=== PATIENT | female | born 1955 | race Caucasian/White ===

== ENCOUNTER 2017-01-21 17:07 | Inpatient (IN) | payer OTHER ==
[~2017-01-21] VITALS: Ht 162.6 cm; Wt 144.4 kg
[2017-01-21 17:51] LABS: CARBON DIOXIDE (BICARBONATE) 31.3 MEQ/L (20-31)
[2017-01-21 17:53] LABS: HEMATOCRIT 32.7 % (36.0-46.0); MCH 26.5 PG (29.0-34.0); MCHC 31.5 G/DL (30.0-36.0); MCV 84.1 FL (83-99); MEAN PLAT.VOLUME 11.5 uM^3 (9.5-12.4); PLATELET COUNT 186 K/uL (156-360); RBC DIS.WIDTH-CV 14.2 % (11.8-14.6); RBC DIS.WIDTH-SD 43.3 % (39-53); RED BLOOD COUNT 3.89 M/uL (3.80-5.20); WHITE BLOOD COUNT 8.1 K/uL (4.1-10.2)
[2017-01-21 18:01] LABS: CHLORIDE 103 mEq/L (99-109); POTASSIUM 3.3 mEq/L (3.7-5.4); SODIUM 141 mEq/L (136-147)
[2017-01-21 18:03] LABS: GLUCOSE 220 mg/dL (70-99)
[2017-01-21 18:04] LABS: ANION GAP 14 MEQ/L (2-14)
[2017-01-21 18:07] LABS: UREA NITROGEN (BUN) 30 mg/dL (9-23)
[2017-01-21 18:12] LABS: TROP-I INTERPRETATION NEGATIVE; TROPONIN-I 0.02 ng/mL (0.0-0.30)
[2017-01-21 18:14] LABS: GFR ESTIMATE (CALCULATED) 30 mL/min/
[2017-01-21] MEDS ORDERED: APRESOLINE100 MG PO (19:00)
[2017-01-21] MEDS ORDERED: LYRICA75 MG PO (19:01)
[2017-01-21] MEDS ORDERED: DUONEB 2.5-0.5 M3 ML AEROSOL (19:02)
[2017-01-21] MEDS ORDERED: PROAIR HFA8.5 GM IH (19:02)
[2017-01-21] MEDS ORDERED: LOW DOSE ASPIRI81 M1 PO (19:03)
[2017-01-21] MEDS ORDERED: NORVASC10 MG PO (19:03)
[2017-01-21] MEDS ORDERED: BUDESONIDE0.5 MG/2 M IH (19:04)
[2017-01-21] MEDS ORDERED: SYMBICORT60 INHALAT IH (19:07)
[2017-01-21] MEDS ORDERED: XANAX0.5 MG PO (19:08)
[2017-01-21] MEDS ORDERED: LASIX40 MG PO (19:08)
[2017-01-21] MEDS ORDERED: ERGOCALCIF50000 UNIT PO (19:09)
[2017-01-21] MEDS ORDERED: CELEXA10 MG PO (19:09)
[2017-01-21] MEDS ORDERED: CELEXA20 MG PO (19:10)
[2017-01-21] MEDS ORDERED: PRAVACHOL10 MG PO (19:11)
[2017-01-21] MEDS ORDERED: [UNRECOGNIZED DRUG - OTHER] TP (19:12)
[2017-01-21] MEDS ORDERED: HUMULIN R500 UNIT/1 SC ×2 (19:21→19:23)
[2017-01-21] MEDS ORDERED: LEVO-T150 MCG PO (19:23)
[2017-01-21] MEDS ORDERED: MAGNESIUM OXID500 MG PO (19:24)
[2017-01-21] MEDS ORDERED: BYSTOLIC10 MG PO (19:25)
[2017-01-21] MEDS ORDERED: RANITIDINE HCL150 MG PO (19:25)
[2017-01-21] MEDS ORDERED: [UNRECOGNIZED DRUG - OTHER] TP (19:26)
[2017-01-21] MEDS ORDERED: ANTIBIOTIC TP (19:26)
[2017-01-21] MEDS ORDERED: KENLAOG,ARISTOC60 ML TP (19:27)
[2017-01-21] MEDS ORDERED: LIDOCAINE700 MG TD (19:29)
[2017-01-21] MEDS ORDERED: DAILY VALUE1 EACH PO (19:30)
[2017-01-21] MEDS ORDERED: PERCOCET 5/31 TABLET PO (19:31)
[2017-01-21] MEDS ORDERED: POTASSIUM CHLO10 ME4 PO (19:31)
[2017-01-21] MEDS ORDERED: FLONASE16 G1 BOTH NARES (19:32)
[2017-01-21 21:25] LABS: BICARBONATE 29.6 mEq/L (22-26); COMMENTS - BLOOD GASES A+C+; DEVICE NC; O2 FLOW 4 L/MIN; PCO2 38 mm Hg (35-45); PO2 53 mm Hg (80-100); SITE LR; TOTAL RESP RATE 21 resp/min
[2017-01-22] VITALS (7 sets, daily range): BP systolic 107–153; BP diastolic 51–65
[2017-01-22 01:12] LABS: POINT-OF-CARE METER ID UU14174216
[2017-01-22 02:34] LABS: TROP-I INTERPRETATION NEGATIVE; TROPONIN-I 0.02 ng/mL (0.0-0.30)
[2017-01-22 06:05] LABS: INFLUENZA A VIRAL ANTIGEN NEGATIVE; INFLUENZA B VIRAL ANTIGEN NEGATIVE
[2017-01-22 07:10] LABS: EOSINOPHIL (%) 0 % (0-5); HEMATOCRIT 32.7 % (36.0-46.0); IMMATURE GRANULOCYTE (%) 1.2 % (0.0-0.7); IMMATURE GRANULOCYTE COUNT 0.1 K/uL; INSTRUMENT ABS NEUTROPHIL CT 6.1 K/uL; LYMPHOCYTE COUNT 0.5 K/uL (1.0-2.8); MCH 26.4 PG (29.0-34.0); MCHC 30.9 G/DL (30.0-36.0); MCV 85.6 FL (83-99); MEAN PLAT.VOLUME 11.7 uM^3 (9.5-12.4); MONOCYTE (%) 1.5 % (3-12); MONOCYTE COUNT 0.1 K/uL (0-0.8); NEUTROPHIL (%) 89.6 % (45-76); NEUTROPHIL COUNT 6.1 K/uL (1.8-6.4); PLATELET COUNT 170 K/uL (156-360); RBC DIS.WIDTH-CV 14.2 % (11.8-14.6); RED BLOOD COUNT 3.82 M/uL (3.80-5.20); WHITE BLOOD COUNT 6.8 K/uL (4.1-10.2)
[2017-01-22 07:35] LABS: TROP-I INTERPRETATION NEGATIVE; TROPONIN-I 0.02 ng/mL (0.0-0.30)
[2017-01-22 07:42] LABS: ADD MIUA? YES; BILIRUBIN NEGATIVE; BLOOD NEGATIVE; COLOR YELLOW ((YELLOW)); GLUCOSE (STRIP) 150; KETONES NEGATIVE; LEUKOCYTES NEGATIVE; NITRITE NEGATIVE; PROTEIN (STRIP) >=500; SPECIFIC GRAVITY 1.012 (1.000-1.030); UROBILINOGEN 0.2 MG/DL (0.2-1.0)
[2017-01-22 08:03] LABS: BACTERIA RARE /HPF; EPITHELIAL CELLS RARE /HPF; GRANULAR CASTS 0-5 /LPF; MUCUS TRACE /LPF; WHITE BLOOD CELLS 0-5 /HPF (0-5)
[2017-01-22 08:20] LABS: ANION GAP 12 MEQ/L (2-14); CHLORIDE 101 MEQ/L (99-109); GFR ESTIMATE (CALCULATED) 28 mL/min/; GLUCOSE 351 mg/dL (70-99); SAMPLE HEMOLYSIS CHECK 0; SAMPLE ICTERIC CHECK 0; SAMPLE LIPEMIA CHECK 0; SODIUM 139 MEQ/L (136-147); UREA NITROGEN (BUN) 30 mg/dL (9-23)
[2017-01-22 08:51] LABS: INTERNAL CONTROL VALID? YES
[2017-01-22 12:30] LABS: POINT-OF-CARE METER ID UU13113781
[2017-01-22 16:18] LABS: POINT-OF-CARE METER ID UU13113781
[2017-01-23 04:00] VITALS: BP 119/56
[2017-01-23 07:57] VITALS: BP 134/59
[2017-01-23 08:04] LABS: POINT-OF-CARE METER ID UU13113781
[2017-01-23 11:18] LABS: POINT-OF-CARE METER ID UU14174216
[2017-01-23 11:29] LABS: ANION GAP 10 MEQ/L (2-14); CHLORIDE 99 MEQ/L (99-109); GFR ESTIMATE (CALCULATED) 25 mL/min/; GLUCOSE 273 mg/dL (70-99); POTASSIUM 3.8 MEQ/L (3.7-5.4); SAMPLE HEMOLYSIS CHECK 0; SAMPLE ICTERIC CHECK 0; SAMPLE LIPEMIA CHECK 0; SODIUM 138 MEQ/L (136-147); UREA NITROGEN (BUN) 41 mg/dL (9-23)
[2017-01-23 12:48] VITALS: BP 135/73
[2017-01-23 16:09] LABS: POINT-OF-CARE METER ID UU14174216
[2017-01-23 16:18] VITALS: BP 129/72
[2017-01-23 20:02] LABS: METH RESISTANT S AUREUS PCR NEGATIVE (NEGATIVE)
[2017-01-23 20:03] LABS: PROBE CHECK PASS; SPECIMEN PROCESSING CONTROL PASS
[2017-01-23 20:09] VITALS: BP 138/63
[2017-01-23 20:52] LABS: POINT-OF-CARE METER ID UU14174216
[2017-01-23 23:34] VITALS: BP 130/70
[2017-01-24 03:24] VITALS: BP 124/56
[2017-01-24 06:43] LABS: POINT-OF-CARE METER ID UU14162508
[2017-01-24 07:52] VITALS: BP 136/68
[2017-01-24 08:36] LABS: HEMATOCRIT 33.7 % (36.0-46.0); MCH 26.2 PG (29.0-34.0); MCHC 31.2 G/DL (30.0-36.0); MEAN PLAT.VOLUME 11.7 uM^3 (9.5-12.4); PLATELET COUNT 208 K/uL (156-360); RBC DIS.WIDTH-CV 14.1 % (11.8-14.6); RBC DIS.WIDTH-SD 42.9 % (39-53); RED BLOOD COUNT 4.01 M/uL (3.80-5.20)
[2017-01-24 08:37] LABS: WHITE BLOOD COUNT 11.7 K/uL (4.1-10.2)
[2017-01-24 08:42] LABS: ANION GAP 8 MEQ/L (2-14); CHLORIDE 103 MEQ/L (99-109); GFR ESTIMATE (CALCULATED) 23 mL/min/; GLUCOSE 143 mg/dL (70-99); POTASSIUM 3.8 MEQ/L (3.7-5.4); SAMPLE HEMOLYSIS CHECK 0; SAMPLE ICTERIC CHECK 0; SAMPLE LIPEMIA CHECK 0; SODIUM 139 MEQ/L (136-147); UREA NITROGEN (BUN) 50 mg/dL (9-23)
[2017-01-24 11:03] VITALS: BP 141/60
[2017-01-24 11:21] LABS: POINT-OF-CARE METER ID UU14162508
[2017-01-24 15:32] VITALS: BP 124/62
[2017-01-24 15:46] LABS: POINT-OF-CARE METER ID UU14162508
[2017-01-24 19:51] VITALS: BP 112/56
[2017-01-24 22:16] LABS: POINT-OF-CARE METER ID UU14162508
[2017-01-24 23:10] VITALS: BP 133/63
[2017-01-25 03:47] VITALS: BP 142/65
[2017-01-25 04:25] LABS: EOSINOPHIL (%) 0 % (0-5); HEMATOCRIT 32.5 % (36.0-46.0); IMMATURE GRANULOCYTE (%) 2.2 % (0.0-0.7); IMMATURE GRANULOCYTE COUNT 0.2 K/uL; INSTRUMENT ABS NEUTROPHIL CT 7.6 K/uL; LYMPHOCYTE COUNT 0.8 K/uL (1.0-2.8); MCH 26.4 PG (29.0-34.0); MCHC 31.4 G/DL (30.0-36.0); MEAN PLAT.VOLUME 11.7 uM^3 (9.5-12.4); MONOCYTE (%) 3.7 % (3-12); MONOCYTE COUNT 0.3 K/uL (0-0.8); NEUTROPHIL (%) 84.8 % (45-76); NEUTROPHIL COUNT 7.6 K/uL (1.8-6.4); PLATELET COUNT 179 K/uL (156-360); RBC DIS.WIDTH-CV 14.1 % (11.8-14.6); RBC DIS.WIDTH-SD 42.9 % (39-53); RED BLOOD COUNT 3.87 M/uL (3.80-5.20); WHITE BLOOD COUNT 8.9 K/uL (4.1-10.2)
[2017-01-25 04:50] LABS: CHLORIDE 105 mEq/L (99-109); POTASSIUM 3.9 mEq/L (3.7-5.4); SODIUM 141 mEq/L (136-147)
[2017-01-25 04:51] LABS: GLUCOSE 149 mg/dL (70-99)
[2017-01-25 04:53] LABS: ANION GAP 11 MEQ/L (2-14)
[2017-01-25 04:55] LABS: GFR ESTIMATE (CALCULATED) 24 mL/min/
[2017-01-25 04:56] LABS: UREA NITROGEN (BUN) 55 mg/dL (9-23)
[2017-01-25 05:52] LABS: VANCOMYCIN, TROUGH 11.1 MCG/ML (10-20)
[2017-01-25 06:37] LABS: POINT-OF-CARE METER ID UU14162508
[2017-01-25 07:06] VITALS: BP 130/60
[2017-01-25 11:05] VITALS: BP 121/58
[2017-01-25 12:30] LABS: POINT-OF-CARE METER ID UU14162508
[2017-01-25 15:27] VITALS: BP 155/69
[2017-01-25 15:37] LABS: POINT-OF-CARE METER ID UU14162508
[2017-01-25 19:47] VITALS: BP 132/66
[2017-01-25 20:48] LABS: POINT-OF-CARE METER ID UU14162508
[2017-01-25 23:45] VITALS: BP 145/71
[2017-01-26 03:44] VITALS: BP 141/68
[2017-01-26 06:34] LABS: POINT-OF-CARE METER ID UU14162508
[2017-01-26 07:36] LABS: EOSINOPHIL (%) 0.1 % (0-5); HEMATOCRIT 30.8 % (36.0-46.0); IMMATURE GRANULOCYTE (%) 1.8 % (0.0-0.7); IMMATURE GRANULOCYTE COUNT 0.2 K/uL; INSTRUMENT ABS NEUTROPHIL CT 6.2 K/uL; LYMPHOCYTE COUNT 1.8 K/uL (1.0-2.8); MCH 26.6 PG (29.0-34.0); MCHC 31.5 G/DL (30.0-36.0); MCV 84.6 FL (83-99); MEAN PLAT.VOLUME 12.2 uM^3 (9.5-12.4); MONOCYTE (%) 7.4 % (3-12); MONOCYTE COUNT 0.7 K/uL (0-0.8); NEUTROPHIL (%) 70.2 % (45-76); NEUTROPHIL COUNT 6.2 K/uL (1.8-6.4); PLATELET COUNT 152 K/uL (156-360); RBC DIS.WIDTH-CV 13.9 % (11.8-14.6); RBC DIS.WIDTH-SD 43.3 % (39-53); RED BLOOD COUNT 3.64 M/uL (3.80-5.20); WHITE BLOOD COUNT 8.8 K/uL (4.1-10.2)
[2017-01-26 07:55] VITALS: BP 125/58
[2017-01-26 08:05] LABS: ANION GAP 8 MEQ/L (2-14); CHLORIDE 106 MEQ/L (99-109); GFR ESTIMATE (CALCULATED) 28 mL/min/; POTASSIUM 3.5 MEQ/L (3.7-5.4); SAMPLE HEMOLYSIS CHECK 0; SAMPLE ICTERIC CHECK 0; SAMPLE LIPEMIA CHECK 0; SODIUM 143 MEQ/L (136-147); UREA NITROGEN (BUN) 51 mg/dL (9-23)
[2017-01-26 08:06] LABS: GLUCOSE 102 mg/dL (70-99)
[2017-01-26 12:23] VITALS: BP 127/58
[2017-01-26 15:21] VITALS: BP 135/63
[2017-01-26 16:26] LABS: POINT-OF-CARE USER ID STWLMB34
[2017-01-27 00:07] VITALS: BP 148/67
[2017-01-27 06:57] LABS: EOSINOPHIL (%) 0.2 % (0-5); HEMATOCRIT 31.9 % (36.0-46.0); IMMATURE GRANULOCYTE (%) 2.7 % (0.0-0.7); IMMATURE GRANULOCYTE COUNT 0.3 K/uL; INSTRUMENT ABS NEUTROPHIL CT 6.8 K/uL; LYMPHOCYTE COUNT 1.4 K/uL (1.0-2.8); MCH 26.5 PG (29.0-34.0); MCHC 31.3 G/DL (30.0-36.0); MCV 84.4 FL (83-99); MEAN PLAT.VOLUME 11.1 uM^3 (9.5-12.4); MONOCYTE (%) 6.8 % (3-12); MONOCYTE COUNT 0.6 K/uL (0-0.8); NEUTROPHIL (%) 74.5 % (45-76); NEUTROPHIL COUNT 6.8 K/uL (1.8-6.4); PLATELET COUNT 145 K/uL (156-360); RBC DIS.WIDTH-CV 13.7 % (11.8-14.6); RBC DIS.WIDTH-SD 42.6 % (39-53); RED BLOOD COUNT 3.78 M/uL (3.80-5.20); WHITE BLOOD COUNT 9.1 K/uL (4.1-10.2)
[2017-01-27 07:21] LABS: ANION GAP 9 MEQ/L (2-14); CHLORIDE 106 MEQ/L (99-109); GFR ESTIMATE (CALCULATED) 28 mL/min/; GLUCOSE 130 mg/dL (70-99); POTASSIUM 3.9 MEQ/L (3.7-5.4); SAMPLE HEMOLYSIS CHECK 0; SAMPLE ICTERIC CHECK 0; SAMPLE LIPEMIA CHECK 0; SODIUM 143 MEQ/L (136-147); UREA NITROGEN (BUN) 47 mg/dL (9-23)
[2017-01-27 08:00] VITALS: BP 133/60
[2017-01-27 11:58] LABS: POINT-OF-CARE METER ID UU14162508
[2017-01-27] MEDS ORDERED: CIPROFLOXACIN500 M1 PO (12:04)
[2017-01-27] MEDS ORDERED: DOXYCYCLINE HY100 M3 PO (12:05)
[2017-01-27] MEDS ORDERED: SPIRIVA RESPIMAT4 GM IH (12:05)
[2017-01-27] MEDS ORDERED: PRAVACHOL10 MG PO (12:06)
[2017-01-27] MEDS ORDERED: LASIX40 MG PO (12:07)
[2017-01-27] MEDS ORDERED: PREDNISONE20 MG PO (12:07)
[2017-01-27] MEDS ORDERED: PERCOCET 5/31 TABLET PO (12:12)
[2017-01-27] MEDS ORDERED: XANAX0.5 MG PO (12:12)
[2017-01-27] MEDS ORDERED: LYRICA75 MG PO (15:42)
== END 2017-01-27 16:10 | DRG 189 ==
LOC: EME 17:07 → EDOF 22:41 → 4EAST 22:41 → 2EASTP 01-23 23:26
PROVIDERS: Emergency Medicine; Hospitalist; Internal Medicine
PROC: 5A09357 Assistance with Respiratory Ventilation, Less than 24 Consecutive Hours, Continuous Positive Airway Pressure (ICD-10-PCS; principal; 2017-01-22)
DX: J96.01 Acute respiratory failure with hypoxia (principal); J18.9 Pneumonia, unspecified organism; I50.9 Heart failure, unspecified; J44.9 Chronic obstructive pulmonary disease, unspecified; E11.8 Type 2 diabetes mellitus with unspecified complications; K86.1 Other chronic pancreatitis; E03.9 Hypothyroidism, unspecified; R51 Headache; J44.1 Chronic obstructive pulmonary disease with (acute) exacerbation; Z77.22 Contact with and (suspected) exposure to environmental tobacco smoke (acute) (chronic); N18.3 Chronic kidney disease, stage 3 (moderate); E66.2 Morbid (severe) obesity with alveolar hypoventilation; F39 Unspecified mood [affective] disorder; R26.2 Difficulty in walking, not elsewhere classified; I13.0 Hypertensive heart and chronic kidney disease with heart failure and stage 1 through stage 4 chronic kidney disease, or unspecified chronic kidney disease; Z85.3 Personal history of malignant neoplasm of breast; Z90.11 Acquired absence of right breast and nipple; Z99.81 Dependence on supplemental oxygen; Z68.29 Body mass index [BMI] 29.0-29.9, adult; K86.81 Exocrine pancreatic insufficiency
CPT/HCPCS: 36600; 71010; 71020; 71250; 72131; 73552; 73560; 73590; 74176; 78582; 80048; 80202; 81003; 82803; 82948; 83605; 83880; 84484; 85025; 85027; 85379; 87040; 87070; 87205; 87449; 87502; 87641; 93005; 93306; 93970; 94640; 94640 76; 94660; 94760; 94799; 97530 GO; 99202; 99281; 99284; A9540; A9567; J0456; J1650; J1815; J1940; J1956; J2060; J2543; J2920; J2930; J3370; J7050; J7512

== ENCOUNTER 2017-03-04 11:46 | Inpatient (IN) | payer OTHER ==
[~2017-03-04] VITALS: Ht 162.6 cm; Wt 135.0 kg
[~2017-03-04 11:46] MED LIST: ANTIBIOTIC TP; APRESOLINE100 MG PO; BUDESONIDE0.5 MG/2 M IH; BYSTOLIC10 MG PO; CELEXA10 MG PO; CELEXA20 MG PO; CIPROFLOXACIN500 M1 PO; DAILY VALUE1 EACH PO; DOXYCYCLINE HY100 M3 PO; DUONEB 2.5-0.5 M3 ML AEROSOL; ERGOCALCIF50000 UNIT PO; FLONASE16 G1 BOTH NARES; HUMULIN R500 UNIT/1 SC; KENLAOG,ARISTOC60 ML TP; LASIX40 MG PO; LEVO-T150 MCG PO; LIDOCAINE700 MG TD; LOW DOSE ASPIRI81 M1 PO; LYRICA75 MG PO; MAGNESIUM OXID500 MG PO; NORVASC10 MG PO; PERCOCET 5/31 TABLET PO; POTASSIUM CHLO10 ME4 PO; PRAVACHOL10 MG PO; PREDNISONE20 MG PO; PROAIR HFA8.5 GM IH; RANITIDINE HCL150 MG PO; SPIRIVA RESPIMAT4 GM IH; SYMBICORT60 INHALAT IH; XANAX0.5 MG PO; [UNRECOGNIZED DRUG - OTHER] TP; [UNRECOGNIZED DRUG - OTHER] TP
[2017-03-04 13:07] LABS: EOSINOPHIL (%) 4.3 % (0-5); EOSINOPHIL COUNT 0.3 K/uL (0-0.3); HEMATOCRIT 27.9 % (36.0-46.0); IMMATURE GRANULOCYTE (%) 2.2 % (0.0-0.7); IMMATURE GRANULOCYTE COUNT 0.2 K/uL; INSTRUMENT ABS NEUTROPHIL CT 5.4 K/uL; LYMPHOCYTE COUNT 1.1 K/uL (1.0-2.8); MCH 25.4 PG (29.0-34.0); MCHC 31.2 G/DL (30.0-36.0); MCV 81.3 FL (83-99); MEAN PLAT.VOLUME 10.6 uM^3 (9.5-12.4); MONOCYTE (%) 8.3 % (3-12); MONOCYTE COUNT 0.6 K/uL (0-0.8); NEUTROPHIL (%) 70.1 % (45-76); NEUTROPHIL COUNT 5.4 K/uL (1.8-6.4); PLATELET COUNT 284 K/uL (156-360); RBC DIS.WIDTH-CV 14.8 % (11.8-14.6); RBC DIS.WIDTH-SD 43.3 % (39-53); RED BLOOD COUNT 3.43 M/uL (3.80-5.20); WHITE BLOOD COUNT 7.7 K/uL (4.1-10.2)
[2017-03-04 13:18] LABS: INTER. NORMALIZED RATIO 1.1; PTT 29.6 (25-32)
[2017-03-04 13:25] LABS: CHLORIDE 107 mEq/L (99-109); POTASSIUM 3.9 mEq/L (3.7-5.4); SODIUM 140 mEq/L (136-147)
[2017-03-04 13:26] LABS: GLUCOSE 240 mg/dL (70-99)
[2017-03-04 13:28] LABS: ANION GAP 11 MEQ/L (2-14)
[2017-03-04 13:30] LABS: GFR ESTIMATE (CALCULATED) 27 mL/min/
[2017-03-04 13:31] LABS: UREA NITROGEN (BUN) 29 mg/dL (9-23)
[2017-03-04 13:34] LABS: TROP-I INTERPRETATION NEGATIVE; TROPONIN-I 0.01 ng/mL (0.0-0.30)
[2017-03-04] MEDS ORDERED: BUDESONIDE0.5 MG/2 M IH (16:04)
[2017-03-04] MEDS ORDERED: FUROSEMIDE40 MG PO (16:06)
[2017-03-04] MEDS ORDERED: PERCOCET 5/31 TABLET PO (16:08)
[2017-03-04] MEDS ORDERED: PRAVASTATIN SOD20 MG PO (16:09)
[2017-03-04] MEDS ORDERED: SPIRIVA RESPIMAT4 GM IH (16:10)
[2017-03-04] MEDS ORDERED: HUMULIN R500 UNIT/1 SC (16:10)
[2017-03-04] MEDS ORDERED: TOUJEO SOL300 UNIT/1 SC (16:11)
[2017-03-04] MEDS ORDERED: ATENOLOL50 MG PO (16:11)
[2017-03-04 17:20] VITALS: BP 141/58
[2017-03-04 18:06] LABS: POINT-OF-CARE METER ID UU13113702
[2017-03-04 20:29] VITALS: BP 143/63
[2017-03-04 23:43] VITALS: BP 141/66
[2017-03-05 03:45] VITALS: BP 138/70
[2017-03-05 03:52] LABS: POINT-OF-CARE METER ID UU14162508
[2017-03-05 06:37] LABS: POINT-OF-CARE METER ID UU14162508
[2017-03-05 07:12] VITALS: BP 129/67
[2017-03-05 07:15] LABS: ANION GAP 11 MEQ/L (2-14); CHLORIDE 102 MEQ/L (99-109); GFR ESTIMATE (CALCULATED) 27 mL/min/; GLUCOSE 351 mg/dL (70-99); POTASSIUM 4.3 MEQ/L (3.7-5.4); SAMPLE HEMOLYSIS CHECK 0; SAMPLE ICTERIC CHECK 0; SAMPLE LIPEMIA CHECK 0; SODIUM 137 MEQ/L (136-147); UREA NITROGEN (BUN) 40 mg/dL (9-23)
[2017-03-05 09:03] LABS: POINT-OF-CARE METER ID UU14162508
[2017-03-05 10:47] VITALS: BP 134/60
[2017-03-05 15:21] VITALS: BP 122/59
[2017-03-05 19:42] VITALS: BP 141/68
[2017-03-06] VITALS (7 sets, daily range): BP systolic 119–139; BP diastolic 58–74
[2017-03-06 07:24] LABS: HEMATOCRIT 27.6 % (36.0-46.0); MCH 26.4 PG (29.0-34.0); MCHC 31.9 G/DL (30.0-36.0); MCV 82.9 FL (83-99); MEAN PLAT.VOLUME 11.1 uM^3 (9.5-12.4); PLATELET COUNT 303 K/uL (156-360); RBC DIS.WIDTH-CV 15.1 % (11.8-14.6); RBC DIS.WIDTH-SD 43.8 % (39-53); RED BLOOD COUNT 3.33 M/uL (3.80-5.20); WHITE BLOOD COUNT 10.2 K/uL (4.1-10.2)
[2017-03-06 07:41] LABS: ANION GAP 10 MEQ/L (2-14); CHLORIDE 99 MEQ/L (99-109); GFR ESTIMATE (CALCULATED) 24 mL/min/; GLUCOSE 354 mg/dL (70-99); POTASSIUM 4.5 MEQ/L (3.7-5.4); SAMPLE HEMOLYSIS CHECK 0; SAMPLE ICTERIC CHECK 0; SAMPLE LIPEMIA CHECK 0; SODIUM 134 MEQ/L (136-147); UREA NITROGEN (BUN) 54 mg/dL (9-23)
[2017-03-06] MEDS ORDERED: HUMULIN R500 UNIT/1 SC (14:20)
[2017-03-06] MEDS ORDERED: HUMULIN R500 UNIT/1 SQ (14:20)
[2017-03-06 17:23] LABS: POINT-OF-CARE METER ID UU14162508; POINT-OF-CARE USER ID STWLMB34
[2017-03-06 22:59] LABS: POINT-OF-CARE METER ID UU14162508
[2017-03-07 05:31] VITALS: BP 137/64
[2017-03-07 07:06] LABS: HEMATOCRIT 26.4 % (36.0-46.0); MCHC 31.8 G/DL (30.0-36.0); MCV 81.7 FL (83-99); MEAN PLAT.VOLUME 10.8 uM^3 (9.5-12.4); PLATELET COUNT 255 K/uL (156-360); RBC DIS.WIDTH-CV 14.8 % (11.8-14.6); RBC DIS.WIDTH-SD 42.7 % (39-53); RED BLOOD COUNT 3.23 M/uL (3.80-5.20); WHITE BLOOD COUNT 10.9 K/uL (4.1-10.2)
[2017-03-07 07:31] VITALS: BP 134/62
[2017-03-07 07:37] LABS: ANION GAP 13 MEQ/L (2-14); CHLORIDE 100 MEQ/L (99-109); GFR ESTIMATE (CALCULATED) 19 mL/min/; GLUCOSE 217 mg/dL (70-99); POTASSIUM 4.2 MEQ/L (3.7-5.4); SAMPLE HEMOLYSIS CHECK 0; SAMPLE ICTERIC CHECK 0; SAMPLE LIPEMIA CHECK 0; SODIUM 132 MEQ/L (136-147); UREA NITROGEN (BUN) 64 mg/dL (9-23)
[2017-03-07 11:28] VITALS: BP 121/59
[2017-03-07 11:40] LABS: POINT-OF-CARE METER ID UU14162508
[2017-03-07 16:06] VITALS: BP 118/57
[2017-03-07 20:04] VITALS: BP 132/78
[2017-03-08 01:05] VITALS: BP 129/60
[2017-03-08 02:14] LABS: POINT-OF-CARE METER ID UU14162508; POINT-OF-CARE USER ID 609231305
[2017-03-08 04:00] VITALS: BP 124/77
[2017-03-08 06:24] VITALS: BP 110/53
[2017-03-08 07:46] LABS: HEMATOCRIT 27.3 % (36.0-46.0); MCH 25.8 PG (29.0-34.0); MCHC 31.5 G/DL (30.0-36.0); PLATELET COUNT 243 K/uL (156-360); RBC DIS.WIDTH-SD 43.1 % (39-53); RED BLOOD COUNT 3.33 M/uL (3.80-5.20); WHITE BLOOD COUNT 10.9 K/uL (4.1-10.2)
[2017-03-08 07:56] LABS: ANION GAP 10 MEQ/L (2-14); CHLORIDE 105 MEQ/L (99-109); GFR ESTIMATE (CALCULATED) 23 mL/min/; GLUCOSE 110 mg/dL (70-99); POTASSIUM 4.1 MEQ/L (3.7-5.4); SAMPLE HEMOLYSIS CHECK 0; SAMPLE ICTERIC CHECK 0; SAMPLE LIPEMIA CHECK 0; SODIUM 138 MEQ/L (136-147); UREA NITROGEN (BUN) 72 mg/dL (9-23)
[2017-03-08 08:00] VITALS: BP 127/63
[2017-03-08] MEDS ORDERED: PREDNISONE10 MG PO (09:23)
[2017-03-09 11:57] LABS: POINT-OF-CARE METER ID UU14162508
[2017-03-09 12:00] LABS: POINT-OF-CARE METER ID UU14162508
[2017-03-09 12:02] LABS: POINT-OF-CARE USER ID 609231305
[2017-03-09 12:06] LABS: POINT-OF-CARE METER ID UU14162508
[2017-03-09 12:07] LABS: POINT-OF-CARE METER ID UU14162508; POINT-OF-CARE USER ID STWLMB34
[2017-03-09 12:09] LABS: POINT-OF-CARE METER ID UU14162508
[2017-03-09 12:09] LABS: POINT-OF-CARE METER ID UU14162508
[2017-03-09 12:10] LABS: POINT-OF-CARE METER ID UU14162508
== END 2017-03-08 12:10 | disposition home health service (06) | DRG 291 ==
LOC: EME 11:46 → EDOF 16:36 → 2EAST 16:36
PROVIDERS: Emergency Medicine; Hospitalist
DX: I50.33 Acute on chronic diastolic (congestive) heart failure (principal); J44.1 Chronic obstructive pulmonary disease with (acute) exacerbation; J96.21 Acute and chronic respiratory failure with hypoxia; E11.65 Type 2 diabetes mellitus with hyperglycemia; K86.1 Other chronic pancreatitis; E11.22 Type 2 diabetes mellitus with diabetic chronic kidney disease; I12.9 Hypertensive chronic kidney disease with stage 1 through stage 4 chronic kidney disease, or unspecified chronic kidney disease; N18.3 Chronic kidney disease, stage 3 (moderate); E11.40 Type 2 diabetes mellitus with diabetic neuropathy, unspecified; Z68.43 Body mass index [BMI] 50.0-59.9, adult; E66.2 Morbid (severe) obesity with alveolar hypoventilation; T38.0X5A Adverse effect of glucocorticoids and synthetic analogues, initial encounter; E78.5 Hyperlipidemia, unspecified; F39 Unspecified mood [affective] disorder; E03.9 Hypothyroidism, unspecified; Z85.3 Personal history of malignant neoplasm of breast; Z90.11 Acquired absence of right breast and nipple; Z90.49 Acquired absence of other specified parts of digestive tract; Z79.4 Long term (current) use of insulin; Z92.3 Personal history of irradiation; Z92.21 Personal history of antineoplastic chemotherapy; Z99.81 Dependence on supplemental oxygen
CPT/HCPCS: 71010; 80048; 82948; 84484; 85025; 85027; 85610; 85730; 93005; 94640; 94640 76; 94660; 94760; 94799; 99202; 99281; 99285; J1644; J1650; J1815; J1940; J2920; J2930; J7512

== ENCOUNTER 2017-03-30 11:12 | Inpatient (IN) | payer OTHER ==
[~2017-03-30] VITALS: Ht 162.6 cm; Wt 147.0 kg
[~2017-03-30 11:12] MED LIST changes: +ATENOLOL50 MG PO; +FUROSEMIDE40 MG PO; +HUMULIN R500 UNIT/1 SQ; +PRAVASTATIN SOD20 MG PO; +PREDNISONE10 MG PO; +TOUJEO SOL300 UNIT/1 SC
[2017-03-30 12:23] LABS: EOSINOPHIL (%) 2.6 % (0-5); EOSINOPHIL COUNT 0.2 K/uL (0-0.3); HEMATOCRIT 27.2 % (36.0-46.0); IMMATURE GRANULOCYTE (%) 1.5 % (0.0-0.7); IMMATURE GRANULOCYTE COUNT 0.1 K/uL; INSTRUMENT ABS NEUTROPHIL CT 5.3 K/uL; LYMPHOCYTE COUNT 0.9 K/uL (1.0-2.8); MCHC 30.9 G/DL (30.0-36.0); MCV 84.2 FL (83-99); MEAN PLAT.VOLUME 11.1 uM^3 (9.5-12.4); MONOCYTE (%) 4.9 % (3-12); MONOCYTE COUNT 0.3 K/uL (0-0.8); NEUTROPHIL (%) 77.5 % (45-76); NEUTROPHIL COUNT 5.3 K/uL (1.8-6.4); PLATELET COUNT 211 K/uL (156-360); RBC DIS.WIDTH-CV 17.3 % (11.8-14.6); RBC DIS.WIDTH-SD 53.3 % (39-53); RED BLOOD COUNT 3.23 M/uL (3.80-5.20); WHITE BLOOD COUNT 6.9 K/uL (4.1-10.2)
[2017-03-30 12:32] LABS: PROTHROMBIN TIME 10.3 (9.2-11.2); PTT 27.5 (25-32)
[2017-03-30 12:34] LABS: CHLORIDE 106 mEq/L (99-109); POTASSIUM 3.8 mEq/L (3.7-5.4); SODIUM 140 mEq/L (136-147)
[2017-03-30 12:35] LABS: GLUCOSE 320 mg/dL (70-99)
[2017-03-30 12:37] LABS: ANION GAP 9 MEQ/L (2-14)
[2017-03-30 12:39] LABS: GFR ESTIMATE (CALCULATED) 28 mL/min/
[2017-03-30 12:40] LABS: UREA NITROGEN (BUN) 36 mg/dL (9-23)
[2017-03-30 12:44] LABS: TROP-I INTERPRETATION NEGATIVE; TROPONIN-I 0.03 ng/mL (0.0-0.30)
[2017-03-30 14:10] LABS: POINT-OF-CARE METER ID UU14100415
[2017-03-30] MEDS ORDERED: APRESOLINE50 MG PO (14:26)
[2017-03-30 14:27] VITALS: BP 190/82
[2017-03-30] MEDS ORDERED: PERCOCET 10/1 TABLET PO (14:43)
[2017-03-30 17:37] VITALS: BP 178/77
[2017-03-30 19:24] LABS: ABSOLUTE RETICULOCYTE CT. 0.1 M/uL (0.02-0.08); IMM.RETIC FRACTION 15.8 % (3-19); RETIC HGB EQUIVALENT 27.1 (28-36); RETICULOCYTE COUNT 2.5 % (0.5-1.8)
[2017-03-30 19:41] LABS: TROP-I INTERPRETATION NEGATIVE; TROPONIN-I 0.03 ng/mL (0.0-0.30)
[2017-03-30 19:49] LABS: IRON 21 MCG/DL (35-150)
[2017-03-30 20:00] VITALS: BP 186/74
[2017-03-30 20:07] LABS: FERRITIN 208 NG/ML (10-291)
[2017-03-30 22:51] LABS: GLUCOSE 469 mg/dL (70-99)
[2017-03-31] VITALS (7 sets, daily range): BP systolic 132–182; BP diastolic 62–92
[2017-03-31 00:54] LABS: TROP-I INTERPRETATION NEGATIVE; TROPONIN-I 0.02 ng/mL (0.0-0.30)
[2017-03-31 05:58] LABS: HEMATOCRIT 27.4 % (36.0-46.0); MCH 26.2 PG (29.0-34.0); MCHC 31.4 G/DL (30.0-36.0); MCV 83.5 FL (83-99); MEAN PLAT.VOLUME 11.1 uM^3 (9.5-12.4); PLATELET COUNT 211 K/uL (156-360); RBC DIS.WIDTH-CV 16.7 % (11.8-14.6); RBC DIS.WIDTH-SD 51.4 % (39-53); RED BLOOD COUNT 3.28 M/uL (3.80-5.20); WHITE BLOOD COUNT 6.6 K/uL (4.1-10.2)
[2017-03-31 06:33] LABS: ANION GAP 9 MEQ/L (2-14); CHLORIDE 99 MEQ/L (99-109); GFR ESTIMATE (CALCULATED) 25 mL/min/; POTASSIUM 4.4 MEQ/L (3.7-5.4); SAMPLE HEMOLYSIS CHECK 0; SAMPLE ICTERIC CHECK 0; SAMPLE LIPEMIA CHECK 0; SODIUM 134 MEQ/L (136-147); UREA NITROGEN (BUN) 40 mg/dL (9-23)
[2017-03-31 06:35] LABS: GLUCOSE 424 mg/dL (70-99)
[2017-03-31 09:12] LABS: POINT-OF-CARE METER ID UU14162513
[2017-03-31 12:25] LABS: POINT-OF-CARE METER ID UU14162513
[2017-03-31 22:23] LABS: POINT-OF-CARE METER ID UU14162513
[2017-04-01 00:58] VITALS: BP 139/61
[2017-04-01 05:07] VITALS: BP 130/60
[2017-04-01 08:01] VITALS: BP 150/7
[2017-04-01 09:07] LABS: HEMATOCRIT 30.9 % (36.0-46.0); MCH 26.2 PG (29.0-34.0); MCHC 30.7 G/DL (30.0-36.0); MCV 85.1 FL (83-99); MEAN PLAT.VOLUME 11.2 uM^3 (9.5-12.4); PLATELET COUNT 274 K/uL (156-360); RBC DIS.WIDTH-CV 16.6 % (11.8-14.6); RBC DIS.WIDTH-SD 51.8 % (39-53); RED BLOOD COUNT 3.63 M/uL (3.80-5.20); WHITE BLOOD COUNT 17.4 K/uL (4.1-10.2)
[2017-04-01 09:41] LABS: ANION GAP 12 MEQ/L (2-14); CHLORIDE 100 MEQ/L (99-109); GFR ESTIMATE (CALCULATED) 27 mL/min/; POTASSIUM 4.2 MEQ/L (3.7-5.4); SAMPLE HEMOLYSIS CHECK 0; SAMPLE ICTERIC CHECK 0; SAMPLE LIPEMIA CHECK 0; SODIUM 135 MEQ/L (136-147); UREA NITROGEN (BUN) 52 mg/dL (9-23)
[2017-04-01 09:45] LABS: GLUCOSE 196 mg/dL (70-99)
[2017-04-01 12:10] VITALS: BP 154/58
[2017-04-01 12:14] LABS: Estimated Average Glucose 203 mg/dL (70-123); HEMOGLOBIN A1c (GLYCOHEMOGLOB) 8.7 % HGB (Below 5.7)
[2017-04-01 12:31] LABS: POINT-OF-CARE METER ID UU14162513
[2017-04-01 16:50] VITALS: BP 163/72
[2017-04-01 19:00] VITALS: BP 142/65
[2017-04-01 21:26] LABS: POINT-OF-CARE METER ID UU13113831
[2017-04-02 01:16] VITALS: BP 141/65
[2017-04-02 04:49] VITALS: BP 131/64
[2017-04-02 05:44] LABS: EOSINOPHIL (%) 0 % (0-5); HEMATOCRIT 28.5 % (36.0-46.0); IMMATURE GRANULOCYTE (%) 3.3 % (0.0-0.7); IMMATURE GRANULOCYTE COUNT 0.5 K/uL; INSTRUMENT ABS NEUTROPHIL CT 13.3 K/uL; LYMPHOCYTE COUNT 1.4 K/uL (1.0-2.8); MCH 26.1 PG (29.0-34.0); MCHC 30.9 G/DL (30.0-36.0); MCV 84.6 FL (83-99); MONOCYTE (%) 6.5 % (3-12); MONOCYTE COUNT 1.1 K/uL (0-0.8); NEUTROPHIL (%) 81.7 % (45-76); NEUTROPHIL COUNT 13.3 K/uL (1.8-6.4); PLATELET COUNT 224 K/uL (156-360); RBC DIS.WIDTH-CV 16.9 % (11.8-14.6); RBC DIS.WIDTH-SD 52.4 % (39-53); RED BLOOD COUNT 3.37 M/uL (3.80-5.20); WHITE BLOOD COUNT 16.2 K/uL (4.1-10.2)
[2017-04-02 06:40] LABS: ANION GAP 11 MEQ/L (2-14); CHLORIDE 103 MEQ/L (99-109); GFR ESTIMATE (CALCULATED) 24 mL/min/; POTASSIUM 4.3 MEQ/L (3.7-5.4); SAMPLE HEMOLYSIS CHECK 0; SAMPLE ICTERIC CHECK 0; SAMPLE LIPEMIA CHECK 0; SODIUM 139 MEQ/L (136-147); UREA NITROGEN (BUN) 61 mg/dL (9-23); URIC ACID 8.3 mg/dL (3.1-9.2)
[2017-04-02 06:47] LABS: GLUCOSE 99 mg/dL (70-99)
[2017-04-02 08:17] LABS: POINT-OF-CARE METER ID UU14162513
[2017-04-02 08:57] LABS: POINT-OF-CARE METER ID UU13113831
[2017-04-02 09:31] LABS: POINT-OF-CARE METER ID UU14162513
[2017-04-02 09:44] VITALS: BP 189/90
[2017-04-02] MEDS ORDERED: AMOX TR-K CLV1 EAC3 PO (11:34)
[2017-04-02] MEDS ORDERED: DOXYCYCLINE HY100 M3 PO (11:34)
[2017-04-02] MEDS ORDERED: MUCINEX600 MG PO (11:35)
[2017-04-02] MEDS ORDERED: MONTELUKAST SOD10 MG PO (11:35)
[2017-04-02] MEDS ORDERED: PREDNISONE10 MG PO (11:39)
[2017-04-02 12:21] VITALS: BP 165/82
== END 2017-04-02 16:25 | disposition home health service (06) | DRG 291 ==
LOC: EME → EDBD 11:12 → EDOF 13:33 → 5WEST 14:27
PROVIDERS: Emergency Medicine; Hospitalist; Internal Medicine; Internal Medicine Nephrology; Nurse Practitioner Family
DX: I13.0 Hypertensive heart and chronic kidney disease with heart failure and stage 1 through stage 4 chronic kidney disease, or unspecified chronic kidney disease (principal); I50.32 Chronic diastolic (congestive) heart failure; J44.1 Chronic obstructive pulmonary disease with (acute) exacerbation; J44.0 Chronic obstructive pulmonary disease with (acute) lower respiratory infection; J20.9 Acute bronchitis, unspecified; J96.01 Acute respiratory failure with hypoxia; N17.9 Acute kidney failure, unspecified; E11.22 Type 2 diabetes mellitus with diabetic chronic kidney disease; N18.3 Chronic kidney disease, stage 3 (moderate); T38.0X5A Adverse effect of glucocorticoids and synthetic analogues, initial encounter; T50.2X5A Adverse effect of carbonic-anhydrase inhibitors, benzothiadiazides and other diuretics, initial encounter; B35.9 Dermatophytosis, unspecified; D63.1 Anemia in chronic kidney disease; E03.9 Hypothyroidism, unspecified; K86.1 Other chronic pancreatitis; G47.33 Obstructive sleep apnea (adult) (pediatric); E66.2 Morbid (severe) obesity with alveolar hypoventilation; E66.01 Morbid (severe) obesity due to excess calories; E78.5 Hyperlipidemia, unspecified; F32.9 Major depressive disorder, single episode, unspecified; Z90.11 Acquired absence of right breast and nipple; F41.9 Anxiety disorder, unspecified; Z92.21 Personal history of antineoplastic chemotherapy; Z79.4 Long term (current) use of insulin; Z79.51 Long term (current) use of inhaled steroids; Z79.82 Long term (current) use of aspirin; Z85.3 Personal history of malignant neoplasm of breast; Z99.81 Dependence on supplemental oxygen
CPT/HCPCS: 71010; 71020; 76770; 80048; 81003; 82570; 82607; 82728; 82746; 82948; 83036; 83540; 83880; 84100; 84156; 84466; 84484; 84550; 84999; 85025; 85027; 85045; 85610; 85730; 87070; 87205; 93005; 94640; 94640 76; 94660; 94760; 94799; 99281; 99285; G0378; G8987 GO CI; G8988 GO CH; J0881; J1100; J1644; J1815; J1940; J2930; J7030; J7050; J7644

== ENCOUNTER 2017-04-22 11:33 | Inpatient (IN) | payer OTHER ==
[~2017-04-22] VITALS: Ht 160 cm; Wt 140.1 kg
[~2017-04-22 11:33] MED LIST changes: +AMOX TR-K CLV1 EAC3 PO; +APRESOLINE50 MG PO; +KLOR-CON M1010 MEQ PO; +MONTELUKAST SOD10 MG PO; +MUCINEX600 MG PO; +PERCOCET 10/1 TABLET PO
[2017-04-22 12:11] LABS: EOSINOPHIL (%) 1.3 % (0-5); EOSINOPHIL COUNT 0.1 K/uL (0-0.3); HEMATOCRIT 28.2 % (36.0-46.0); IMMATURE GRANULOCYTE (%) 0.7 % (0.0-0.7); IMMATURE GRANULOCYTE COUNT 0.1 K/uL; INSTRUMENT ABS NEUTROPHIL CT 5.1 K/uL; LYMPHOCYTE COUNT 1.1 K/uL (1.0-2.8); MCH 26.3 PG (29.0-34.0); MCHC 31.2 G/DL (30.0-36.0); MCV 84.2 FL (83-99); MEAN PLAT.VOLUME 11.1 uM^3 (9.5-12.4); MONOCYTE COUNT 0.6 K/uL (0-0.8); NEUTROPHIL (%) 74.3 % (45-76); NEUTROPHIL COUNT 5.1 K/uL (1.8-6.4); PLATELET COUNT 185 K/uL (156-360); RBC DIS.WIDTH-SD 52.6 % (39-53); RED BLOOD COUNT 3.35 M/uL (3.80-5.20); WHITE BLOOD COUNT 6.9 K/uL (4.1-10.2)
[2017-04-22 12:15] LABS: INTER. NORMALIZED RATIO 1.1
[2017-04-22 12:17] LABS: PTT 28.5 SEC (25-37)
[2017-04-22 12:18] LABS: CHLORIDE 103 mEq/L (99-109); POTASSIUM 3.7 mEq/L (3.7-5.4); SODIUM 137 mEq/L (136-147)
[2017-04-22 12:20] LABS: GLUCOSE 209 mg/dL (70-99)
[2017-04-22 12:21] LABS: ANION GAP 9 MEQ/L (2-14)
[2017-04-22 12:24] LABS: GFR ESTIMATE (CALCULATED) 30 mL/min/
[2017-04-22 12:25] LABS: UREA NITROGEN (BUN) 27 mg/dL (9-23)
[2017-04-22 12:30] LABS: TROP-I INTERPRETATION NEGATIVE; TROPONIN-I 0.02 ng/mL (0.0-0.30)
[2017-04-22 14:06] LABS: TOTAL BILIRUBIN 0.6 mg/dL (0.0-1.0)
[2017-04-22 14:07] LABS: ALKALINE PHOSPHATASE 81 IU/L (3-129)
[2017-04-22 14:10] LABS: DIRECT BILIRUBIN 0.3 mg/dL (0.0-0.3)
[2017-04-22 14:11] LABS: LIPASE 6 U/L (1.0-51.0)
[2017-04-22 14:13] LABS: BASE EXCESS 5.4 mEq/L (-3 to +3); BICARBONATE 25.8 mEq/L (22-26); CARBOXY HGB 2.3 % (0-5); METHEMOGLOBIN 0.8 % (0-1.5); PCO2 24 mm Hg (35-45); PO2 64 mm Hg (80-100); SITE RR; pH 7.64 (7.35-7.45)
[2017-04-22 14:14] LABS: COMMENTS - BLOOD GASES A+C+; DEVICE HHFNC; FI02 35 %; O2 FLOW 60 L/MIN; TOTAL RESP RATE 35 resp/min
[2017-04-22] MEDS ORDERED: LYRICA75 MG PO (16:35)
[2017-04-22] MEDS ORDERED: SYMBICORT60 INHALAT IH (16:35)
[2017-04-22] MEDS ORDERED: CALCIUM 500 MG1 EACH PO (16:36)
[2017-04-22] MEDS ORDERED: LASIX40 MG PO (16:45)
[2017-04-22 20:58] LABS: TROPONIN-I 0.04 ng/mL (0.0-0.30)
[2017-04-22 21:00] LABS: TROP-I INTERPRETATION NEGATIVE
[2017-04-22 21:53] LABS: POINT-OF-CARE METER ID UU13113731
[2017-04-22 22:17] LABS: METH RESISTANT S AUREUS PCR NEGATIVE (NEGATIVE)
[2017-04-22 22:40] LABS: PROBE CHECK PASS; SPECIMEN PROCESSING CONTROL PASS
[2017-04-23] VITALS (11 sets, daily range): BP systolic 0–216; BP diastolic 0–93
[2017-04-23 05:36] LABS: MCH 27.5 PG (29.0-34.0); MCHC 31.9 G/DL (30.0-36.0); MCV 86.3 FL (83-99); MEAN PLAT.VOLUME 11.4 uM^3 (9.5-12.4); PLATELET COUNT 201 K/uL (156-360); RBC DIS.WIDTH-CV 17.2 % (11.8-14.6); RBC DIS.WIDTH-SD 54.7 % (39-53); RED BLOOD COUNT 3.71 M/uL (3.80-5.20); WHITE BLOOD COUNT 7.7 K/uL (4.1-10.2)
[2017-04-23 06:38] LABS: ALKALINE PHOSPHATASE 83 IU/L (3-129); ANION GAP 10 MEQ/L (2-14); CHLORIDE 98 MEQ/L (99-109); GFR ESTIMATE (CALCULATED) 28 mL/min/; POTASSIUM 4.7 MEQ/L (3.7-5.4); SAMPLE HEMOLYSIS CHECK 0; SAMPLE ICTERIC CHECK 0; SAMPLE LIPEMIA CHECK 0; SODIUM 136 MEQ/L (136-147); TOTAL BILIRUBIN 0.4 MG/DL (0.0-1.0); UREA NITROGEN (BUN) 30 mg/dL (9-23)
[2017-04-23 06:48] LABS: GLUCOSE 356 mg/dL (70-99)
[2017-04-23 09:37] LABS: TROP-I INTERPRETATION NEGATIVE; TROPONIN-I 0.02 ng/mL (0.0-0.30)
[2017-04-23 17:08] LABS: POINT-OF-CARE METER ID UU13113748
[2017-04-24] VITALS (8 sets, daily range): BP systolic 148–184; BP diastolic 40–75
[2017-04-24 05:45] LABS: EOSINOPHIL (%) 0 % (0-5); HEMATOCRIT 28.1 % (36.0-46.0); IMMATURE GRANULOCYTE (%) 0.3 % (0.0-0.7); INSTRUMENT ABS NEUTROPHIL CT 7.4 K/uL; LYMPHOCYTE COUNT 0.7 K/uL (1.0-2.8); MCH 27.1 PG (29.0-34.0); MCHC 31.7 G/DL (30.0-36.0); MCV 85.7 FL (83-99); MEAN PLAT.VOLUME 11.5 uM^3 (9.5-12.4); MONOCYTE (%) 8.2 % (3-12); MONOCYTE COUNT 0.7 K/uL (0-0.8); NEUTROPHIL (%) 83.2 % (45-76); NEUTROPHIL COUNT 7.4 K/uL (1.8-6.4); PLATELET COUNT 222 K/uL (156-360); RBC DIS.WIDTH-CV 16.7 % (11.8-14.6); RBC DIS.WIDTH-SD 53.1 % (39-53); RED BLOOD COUNT 3.28 M/uL (3.80-5.20); WHITE BLOOD COUNT 8.9 K/uL (4.1-10.2)
[2017-04-24 06:25] LABS: ANION GAP 10 MEQ/L (2-14); CHLORIDE 97 MEQ/L (99-109); GFR ESTIMATE (CALCULATED) 24 mL/min/; GLUCOSE 323 mg/dL (70-99); POTASSIUM 4.2 MEQ/L (3.7-5.4); SAMPLE HEMOLYSIS CHECK 0; SAMPLE ICTERIC CHECK 0; SAMPLE LIPEMIA CHECK 0; SODIUM 132 MEQ/L (136-147)
[2017-04-24 06:27] LABS: UREA NITROGEN (BUN) 46 mg/dL (9-23)
[2017-04-24 06:32] LABS: POINT-OF-CARE METER ID UU14208751
[2017-04-24 08:40] LABS: POINT-OF-CARE METER ID UU14208751
[2017-04-24 11:02] LABS: POINT-OF-CARE METER ID UU13113731
[2017-04-24 11:05] LABS: POINT-OF-CARE METER ID UU13113748
[2017-04-25 01:12] LABS: POINT-OF-CARE USER ID ENVMNS
[2017-04-25 04:00] VITALS: BP 157/69
[2017-04-25 07:34] VITALS: BP 165/70
[2017-04-25 07:41] LABS: POINT-OF-CARE METER ID UU13113698
[2017-04-25 11:20] LABS: POINT-OF-CARE METER ID UU13113698
[2017-04-25 14:46] VITALS: BP 191/81
[2017-04-25 16:10] VITALS: BP 173/84
[2017-04-25 16:24] LABS: POINT-OF-CARE METER ID UU14174216
[2017-04-25 19:19] VITALS: BP 146/64
[2017-04-25 21:55] LABS: GLUCOSE 523 mg/dL (70-99)
[2017-04-25 23:52] VITALS: BP 178/74
[2017-04-26 03:40] VITALS: BP 168/73
[2017-04-26 05:45] LABS: EOSINOPHIL (%) 0 % (0-5); HEMATOCRIT 27.4 % (36.0-46.0); IMMATURE GRANULOCYTE COUNT 0.1 K/uL; INSTRUMENT ABS NEUTROPHIL CT 8.8 K/uL; LYMPHOCYTE COUNT 1.1 K/uL (1.0-2.8); MCH 27.8 PG (29.0-34.0); MCHC 32.1 G/DL (30.0-36.0); MCV 86.4 FL (83-99); MEAN PLAT.VOLUME 11.7 uM^3 (9.5-12.4); MONOCYTE (%) 6.1 % (3-12); MONOCYTE COUNT 0.7 K/uL (0-0.8); NEUTROPHIL COUNT 8.8 K/uL (1.8-6.4); PLATELET COUNT 197 K/uL (156-360); RBC DIS.WIDTH-CV 16.8 % (11.8-14.6); RBC DIS.WIDTH-SD 53.4 % (39-53); RED BLOOD COUNT 3.17 M/uL (3.80-5.20); WHITE BLOOD COUNT 10.6 K/uL (4.1-10.2)
[2017-04-26 06:21] LABS: ANION GAP 7 MEQ/L (2-14); CHLORIDE 99 MEQ/L (99-109); GFR ESTIMATE (CALCULATED) 28 mL/min/; GLUCOSE 286 mg/dL (70-99); POTASSIUM 4.5 MEQ/L (3.7-5.4); SAMPLE HEMOLYSIS CHECK 0; SAMPLE ICTERIC CHECK 0; SAMPLE LIPEMIA CHECK 0; SODIUM 134 MEQ/L (136-147); UREA NITROGEN (BUN) 58 mg/dL (9-23)
[2017-04-26 06:31] LABS: POINT-OF-CARE METER ID UU13113781
[2017-04-26 07:27] VITALS: BP 174/79
[2017-04-26 08:07] LABS: POINT-OF-CARE METER ID UU13113781
[2017-04-26 11:14] VITALS: BP 176/77
[2017-04-26 12:12] LABS: POINT-OF-CARE METER ID UU13113781
[2017-04-26 16:47] LABS: POINT-OF-CARE METER ID UU13113781
[2017-04-26 18:48] LABS: POINT-OF-CARE METER ID UU14174216
[2017-04-26 19:17] VITALS: BP 131/79
[2017-04-26 23:25] VITALS: BP 180/74
[2017-04-27 04:55] VITALS: BP 148/65
[2017-04-27 07:39] VITALS: BP 179/76
[2017-04-27 07:55] LABS: POINT-OF-CARE METER ID UU13113698
[2017-04-27 10:51] LABS: POINT-OF-CARE METER ID UU13113698
[2017-04-27 11:45] VITALS: BP 177/69
[2017-04-27 19:53] VITALS: BP 161/74
[2017-04-27 20:23] LABS: POINT-OF-CARE METER ID UU13113781
[2017-04-27 23:48] VITALS: BP 170/81
[2017-04-28 02:57] VITALS: BP 177/81
[2017-04-28 05:21] VITALS: BP 157/84
[2017-04-28 07:47] VITALS: BP 146/72
[2017-04-28 07:55] LABS: POINT-OF-CARE METER ID UU13113781
[2017-04-28 12:09] LABS: POINT-OF-CARE METER ID UU13113781
[2017-04-28 12:24] VITALS: BP 122/54
[2017-04-28] MEDS ORDERED: HYDROCHLOROTHIA25 MG PO (12:40)
[2017-04-28] MEDS ORDERED: PERCOCET 10/1 TABLET PO (14:16)
[2017-04-28 16:28] VITALS: BP 138/56
== END 2017-04-28 16:28 | DRG 189 ==
LOC: EME 11:33 → 4WEST 16:36 → EDOF 16:36 → ENRESERV 16:38 → 4WEST 20:12 → ENRESERV 04-24 08:48 → 4EAST 04-24 10:46 → ENRESERV 04-25 11:06 → CANRESERV 04-25 11:06 → 4EAST 04-28 16:28
PROVIDERS: Emergency Medicine; Hospitalist; Internal Medicine; Student in an Organized Health Care Education/Training Program; Surgery
PROC: 5A09357 Assistance with Respiratory Ventilation, Less than 24 Consecutive Hours, Continuous Positive Airway Pressure (ICD-10-PCS; principal; 2017-04-22)
DX: J96.21 Acute and chronic respiratory failure with hypoxia (principal); I50.33 Acute on chronic diastolic (congestive) heart failure; E87.3 Alkalosis; J44.1 Chronic obstructive pulmonary disease with (acute) exacerbation; E66.2 Morbid (severe) obesity with alveolar hypoventilation; K86.1 Other chronic pancreatitis; I13.0 Hypertensive heart and chronic kidney disease with heart failure and stage 1 through stage 4 chronic kidney disease, or unspecified chronic kidney disease; J98.11 Atelectasis; E11.22 Type 2 diabetes mellitus with diabetic chronic kidney disease; Z68.43 Body mass index [BMI] 50.0-59.9, adult; I27.2 Other secondary pulmonary hypertension; N18.3 Chronic kidney disease, stage 3 (moderate); Z77.22 Contact with and (suspected) exposure to environmental tobacco smoke (acute) (chronic); K57.30 Diverticulosis of large intestine without perforation or abscess without bleeding; T38.0X5A Adverse effect of glucocorticoids and synthetic analogues, initial encounter; F39 Unspecified mood [affective] disorder; E78.5 Hyperlipidemia, unspecified; E11.65 Type 2 diabetes mellitus with hyperglycemia; E03.9 Hypothyroidism, unspecified; Z85.3 Personal history of malignant neoplasm of breast; Z90.11 Acquired absence of right breast and nipple; Z79.4 Long term (current) use of insulin; Z79.82 Long term (current) use of aspirin; Z99.81 Dependence on supplemental oxygen
CPT/HCPCS: 36600; 71010; 74176; 80048; 80048 91; 80053; 80076; 81003; 82570; 82803; 82948; 83690; 83880; 84484; 84999; 85025; 85025 91; 85027; 85610; 85730; 87081; 87086; 87086 GA; 87641; 93005; 93970; 94640; 94640 76; 94660; 94799; 99202; 99281; 99285; J0360; J1644; J1815; J1940; J2270; J2920; J2930; J7512

== ENCOUNTER 2017-08-26 18:49 | Inpatient (IN) | payer OTHER ==
[~2017-08-26] VITALS: Ht 162.6 cm; Wt 134.3 kg
[~2017-08-26 18:49] MED LIST changes: +CALCIUM 500 MG1 EACH PO; +HYDROCHLOROTHIA25 MG PO
[2017-08-26 19:39] LABS: HEMATOCRIT 34.9 % (36.0-46.0); MCH 26.2 PG (29.0-34.0); MCHC 32.1 G/DL (30.0-36.0); MCV 81.7 FL (83-99); MEAN PLAT.VOLUME 11.2 uM^3 (9.5-12.4); PLATELET COUNT 206 K/uL (156-360); RBC DIS.WIDTH-SD 49.7 % (39-53); RED BLOOD COUNT 4.27 M/uL (3.80-5.20); WHITE BLOOD COUNT 11.7 K/uL (4.1-10.2)
[2017-08-26 19:50] LABS: CHLORIDE 102 mEq/L (99-109); POTASSIUM 3.4 mEq/L (3.7-5.4); SODIUM 137 mEq/L (136-147)
[2017-08-26 19:52] LABS: GLUCOSE 250 mg/dL (70-99)
[2017-08-26 19:53] LABS: ANION GAP 11 MEQ/L (2-14)
[2017-08-26 19:56] LABS: GFR ESTIMATE (CALCULATED) 24 mL/min/
[2017-08-26 19:57] LABS: UREA NITROGEN (BUN) 60 mg/dL (9-23)
[2017-08-26 19:59] LABS: TROP-I INTERPRETATION NEGATIVE; TROPONIN-I 0.02 ng/mL (0.0-0.30)
[2017-08-26] MEDS ORDERED: PROVENTIL,2.5 MG/3 M IH (22:28)
[2017-08-26] MEDS ORDERED: TESSALON PERLE100 MG PO (22:29)
[2017-08-26] MEDS ORDERED: HUMULIN R500 UNITS/ SC (22:34)
[2017-08-26] MEDS ORDERED: ATIVAN0.5 MG PO (22:35)
[2017-08-26] MEDS ORDERED: PROMETHAZINE HC25 M1 PO (22:38)
[2017-08-26] MEDS ORDERED: IRON325 M1 PO (22:38)
[2017-08-26] MEDS ORDERED: LINZESS72 MCG PO (22:39)
[2017-08-26] MEDS ORDERED: DEMADEX20 MG PO (22:40)
[2017-08-26] MEDS ORDERED: HUMALOG100 UNIT/1 SC (22:40)
[2017-08-26] MEDS ORDERED: ONCE DAILY1 EACH PO (22:41)
[2017-08-26] MEDS ORDERED: BYSTOLIC10 MG PO (22:41)
[2017-08-26] MEDS ORDERED: COMBIVENT RESPIM4 GM IH (22:42)
[2017-08-27 00:39] VITALS: BP 173/72
[2017-08-27 03:21] LABS: POINT-OF-CARE METER ID UU14162513
[2017-08-27 03:41] VITALS: BP 170/72
[2017-08-27 05:32] LABS: HEMATOCRIT 35.1 % (36.0-46.0); MCH 25.6 PG (29.0-34.0); MCHC 31.1 G/DL (30.0-36.0); MCV 82.6 FL (83-99); MEAN PLAT.VOLUME 12.1 uM^3 (9.5-12.4); PLATELET COUNT 179 K/uL (156-360); RBC DIS.WIDTH-SD 50.6 % (39-53); RED BLOOD COUNT 4.25 M/uL (3.80-5.20); WHITE BLOOD COUNT 12.8 K/uL (4.1-10.2)
[2017-08-27 06:00] LABS: ALKALINE PHOSPHATASE 89 IU/L (3-129); ANION GAP 11 MEQ/L (2-14); CHLORIDE 101 MEQ/L (99-109); DIRECT BILIRUBIN 0.1 mg/dL (0.0-0.3); GFR ESTIMATE (CALCULATED) 27 mL/min/; GLUCOSE 372 mg/dL (70-99); POTASSIUM 3.9 MEQ/L (3.7-5.4); SAMPLE HEMOLYSIS CHECK 0; SAMPLE ICTERIC CHECK 0; SAMPLE LIPEMIA CHECK 0; SODIUM 136 MEQ/L (136-147); TOTAL BILIRUBIN 0.5 MG/DL (0.0-1.0); UREA NITROGEN (BUN) 57 mg/dL (9-23)
[2017-08-27 07:12] VITALS: BP 136/61
[2017-08-27 08:30] LABS: POINT-OF-CARE METER ID UU14162513
[2017-08-27 12:25] VITALS: BP 141/87
[2017-08-27 15:01] LABS: POINT-OF-CARE METER ID UU14162513
[2017-08-27 15:55] VITALS: BP 125/69
[2017-08-27 17:47] LABS: POINT-OF-CARE METER ID UU13113831
[2017-08-27 21:14] LABS: POINT-OF-CARE METER ID UU13113831
[2017-08-27 23:31] VITALS: BP 157/68
[2017-08-28 03:38] VITALS: BP 178/73
[2017-08-28 06:58] VITALS: BP 188/84
[2017-08-28 09:39] LABS: POINT-OF-CARE METER ID UU14162513
[2017-08-28 10:42] VITALS: BP 129/60
[2017-08-28 13:04] LABS: GLUCOSE 557 mg/dL (70-99)
[2017-08-28 16:42] VITALS: BP 131/82
[2017-08-28 20:00] VITALS: BP 159/64
[2017-08-28 21:37] LABS: POINT-OF-CARE METER ID UU14162513
[2017-08-28 23:57] VITALS: BP 110/59
[2017-08-29 03:35] LABS: POINT-OF-CARE METER ID UU13113700
[2017-08-29 03:58] VITALS: BP 137/62
[2017-08-29 06:39] LABS: ANION GAP 11 MEQ/L (2-14); CHLORIDE 98 MEQ/L (99-109); GFR ESTIMATE (CALCULATED) 19 mL/min/; GLUCOSE 337 mg/dL (70-99); POTASSIUM 3.6 MEQ/L (3.7-5.4); SAMPLE HEMOLYSIS CHECK 0; SAMPLE ICTERIC CHECK 0; SAMPLE LIPEMIA CHECK 0; SODIUM 135 MEQ/L (136-147)
[2017-08-29 06:41] LABS: UREA NITROGEN (BUN) 88 mg/dL (9-23)
[2017-08-29 08:57] LABS: POINT-OF-CARE METER ID UU14162513
[2017-08-29 09:06] VITALS: BP 131/62
[2017-08-29 11:33] VITALS: BP 139/65
[2017-08-29 12:33] LABS: POINT-OF-CARE METER ID UU14162513
[2017-08-29 15:28] VITALS: BP 166/72
[2017-08-29 17:27] LABS: POINT-OF-CARE METER ID UU14162513
[2017-08-29 19:34] VITALS: BP 136/83
[2017-08-29 21:33] LABS: POINT-OF-CARE METER ID UU13113700
[2017-08-29 22:42] LABS: POINT-OF-CARE METER ID UU14162513
[2017-08-29 22:43] LABS: POINT-OF-CARE METER ID UU14162513
[2017-08-30] VITALS (7 sets, daily range): BP systolic 98–192; BP diastolic 49–80
[2017-08-30 07:39] LABS: CHLORIDE 101 MEQ/L (99-109); GLUCOSE 293 mg/dL (70-99); POTASSIUM 4.1 MEQ/L (3.7-5.4); SAMPLE HEMOLYSIS CHECK 0; SAMPLE ICTERIC CHECK 0; SAMPLE LIPEMIA CHECK 0; SODIUM 137 MEQ/L (136-147); UREA NITROGEN (BUN) 90 mg/dL (9-23)
[2017-08-30 08:13] LABS: GFR ESTIMATE (CALCULATED) 22 mL/min/
[2017-08-30 08:16] LABS: ANION GAP 10 MEQ/L (2-14)
[2017-08-30 08:35] LABS: POINT-OF-CARE METER ID UU14162513
[2017-08-30 12:05] LABS: POINT-OF-CARE METER ID UU14162513
[2017-08-30 17:41] LABS: POINT-OF-CARE METER ID UU13113700
[2017-08-30 21:41] LABS: POINT-OF-CARE METER ID UU14162513
[2017-08-31 03:54] VITALS: BP 129/55
[2017-08-31 08:38] VITALS: BP 110/64
[2017-08-31 08:41] LABS: POINT-OF-CARE METER ID UU13113700; POINT-OF-CARE USER ID PUTHJD81
[2017-08-31] MEDS ORDERED: TOUJEO SOL300 UNIT/1 SC (13:32)
[2017-08-31] MEDS ORDERED: PREDNISONE10 MG PO (13:33)
== END 2017-08-31 14:51 | disposition home or self-care (01) | DRG 189 ==
LOC: EME 18:49 → EDOF 23:19 → ENRESERV 23:20 → 5WEST 08-27 00:31
PROVIDERS: Hospitalist; Student in an Organized Health Care Education/Training Program
PROC: 5A09357 Assistance with Respiratory Ventilation, Less than 24 Consecutive Hours, Continuous Positive Airway Pressure (ICD-10-PCS; principal; 2017-08-27)
DX: J96.21 Acute and chronic respiratory failure with hypoxia (principal); J44.1 Chronic obstructive pulmonary disease with (acute) exacerbation; N17.9 Acute kidney failure, unspecified; J20.9 Acute bronchitis, unspecified; J44.0 Chronic obstructive pulmonary disease with (acute) lower respiratory infection; K74.60 Unspecified cirrhosis of liver; I13.0 Hypertensive heart and chronic kidney disease with heart failure and stage 1 through stage 4 chronic kidney disease, or unspecified chronic kidney disease; I50.32 Chronic diastolic (congestive) heart failure; N18.3 Chronic kidney disease, stage 3 (moderate); Z79.51 Long term (current) use of inhaled steroids; K86.1 Other chronic pancreatitis; T38.0X5A Adverse effect of glucocorticoids and synthetic analogues, initial encounter; G47.33 Obstructive sleep apnea (adult) (pediatric); E78.5 Hyperlipidemia, unspecified; E11.65 Type 2 diabetes mellitus with hyperglycemia; E11.22 Type 2 diabetes mellitus with diabetic chronic kidney disease; D64.9 Anemia, unspecified; E03.9 Hypothyroidism, unspecified; T50.1X5A Adverse effect of loop [high-ceiling] diuretics, initial encounter; E66.01 Morbid (severe) obesity due to excess calories; Z99.81 Dependence on supplemental oxygen; Z68.43 Body mass index [BMI] 50.0-59.9, adult; Z79.82 Long term (current) use of aspirin; Z79.4 Long term (current) use of insulin; Z87.01 Personal history of pneumonia (recurrent); Z90.11 Acquired absence of right breast and nipple; Z85.3 Personal history of malignant neoplasm of breast; Z90.49 Acquired absence of other specified parts of digestive tract; Z83.79 Family history of other diseases of the digestive system; Z81.1 Family history of alcohol abuse and dependence
CPT/HCPCS: 71020; 78582; 80048; 80076; 82948; 83880; 84484; 84999; 85027; 85379; 93005; 93970; 94640; 94640 76; 94660; 94760; 94799; 97530 GO; 99202; 99281; 99285; A9540; A9567; G0378; G8978 GP CI; G8979 GP CH; J1644; J1815; J1940; J2930; J7512

== ENCOUNTER 2017-12-22 18:50 | Inpatient (IN) | payer OTHER ==
[~2017-12-22] VITALS: Ht 162.6 cm; Wt 135.9 kg
[~2017-12-22 18:50] MED LIST changes: +ATIVAN0.5 MG PO; -CALCIUM 500 MG1 EACH PO; +CALCIUM600 M1 PO; +COMBIVENT RESPIM4 GM IH; +DEMADEX20 MG PO; +HUMALOG100 UNIT/1 SC; +HUMULIN R500 UNITS/ SC; +IRON325 M1 PO; +LINZESS72 MCG PO; +ONCE DAILY1 EACH PO; +PROMETHAZINE HC25 M1 PO; +PROVENTIL,2.5 MG/3 M IH; +TESSALON PERLE100 MG PO
[2017-12-22 19:57] LABS: HEMATOCRIT 33.2 % (36.0-46.0); HEMOGLOBIN 11.1 G/DL (11.9-15.5); MCH 27.9 PG (29.0-34.0); MCHC 33.4 G/DL (30.0-36.0); MCV 83.4 FL (83-99); PLATELET COUNT 233 K/uL (156-360); RBC DIS.WIDTH-CV 14.6 % (11.8-14.6); RBC DIS.WIDTH-SD 44.5 % (39-53); RED BLOOD COUNT 3.98 M/uL (3.80-5.20); WHITE BLOOD COUNT 11.2 K/uL (4.1-10.2)
[2017-12-22 20:01] LABS: CHLORIDE 102 mEq/L (99-109); POTASSIUM 4.1 mEq/L (3.7-5.4); SODIUM 135 mEq/L (136-147)
[2017-12-22 20:02] LABS: GLUCOSE 391 mg/dL (70-99)
[2017-12-22 20:06] LABS: CREATININE 2.4 mg/dL (0.6-1.3); GFR ESTIMATE (CALCULATED) 22 mL/min/; UREA NITROGEN (BUN) 46 mg/dL (9-23)
[2017-12-22 20:22] LABS: ALBUMIN 2.8 g/dL (3.2-4.8)
[2017-12-22 20:23] LABS: MAGNESIUM 1.4 mg/dL (1.3-2.7)
[2017-12-22 20:25] LABS: TOTAL PROTEIN 6.1 g/dL (6.4-8.3)
[2017-12-22 20:27] LABS: TOTAL BILIRUBIN 0.5 mg/dL (0.0-1.0); TROP-I INTERPRETATION NEGATIVE; TROPONIN-I 0.02 ng/mL (0.0-0.30)
[2017-12-22 20:28] LABS: ALKALINE PHOSPHATASE 115 IU/L (3-129)
[2017-12-22 20:30] LABS: AST (GOT) 18 IU/L (2-34)
[2017-12-22 20:31] LABS: ALT (GPT) 17 IU/L (3-49); DIRECT BILIRUBIN 0.2 mg/dL (0.0-0.3)
[2017-12-22 20:52] LABS: BASE EXCESS -0.7 mEq/L (-3 to +3); BICARBONATE 21.6 mEq/L (22-26); CARBOXY HGB 1.7 % (0-5); METHEMOGLOBIN 0.9 % (0-1.5); PO2 103 mm Hg (80-100)
[2017-12-22 20:53] LABS: COMMENTS - BLOOD GASES C+; DEVICE NC; O2 FLOW 3 L/MIN; PCO2 29 mm Hg (35-45); SITE LR; pH 7.48 (7.35-7.45)
[2017-12-22 21:24] LABS: THYROTROPIN (TSH) 3.2 MIU/L (0.4-5.5)
[2017-12-23 00:16] LABS: TROP-I INTERPRETATION NEGATIVE; TROPONIN-I 0.02 ng/mL (0.0-0.30)
[2017-12-23] MEDS ORDERED: MUCINEX600 MG PO (01:41)
[2017-12-23] MEDS ORDERED: HYDROCHLOROTH12.5 M3 PO (01:43)
[2017-12-23] MEDS ORDERED: PREDNISONE10 MG PO (01:55)
[2017-12-23] MEDS ORDERED: LEVAQUIN500 MG PO (01:56)
[2017-12-23] MEDS ORDERED: ALPRAZOLAM0.5 MG PO (02:01)
[2017-12-23 03:42] VITALS: BP 125/71
[2017-12-23 06:21] LABS: HEMOGLOBIN 10.1 G/DL (11.9-15.5); MCH 27.6 PG (29.0-34.0); MCHC 32.6 G/DL (30.0-36.0); MCV 84.7 FL (83-99); PLATELET COUNT 231 K/uL (156-360); RBC DIS.WIDTH-CV 14.8 % (11.8-14.6); RBC DIS.WIDTH-SD 45.9 % (39-53); RED BLOOD COUNT 3.66 M/uL (3.80-5.20); WHITE BLOOD COUNT 10.9 K/uL (4.1-10.2)
[2017-12-23 06:44] LABS: TROP-I INTERPRETATION NEGATIVE; TROPONIN-I 0.03 ng/mL (0.0-0.30)
[2017-12-23 06:46] LABS: CHLORIDE 102 MEQ/L (99-109); CREATININE 2.4 MG/DL (0.6-1.3); GFR ESTIMATE (CALCULATED) 22 mL/min/; GLUCOSE 280 mg/dL (70-99); POTASSIUM 3.7 MEQ/L (3.7-5.4); SODIUM 137 MEQ/L (136-147); UREA NITROGEN (BUN) 49 mg/dL (9-23)
[2017-12-23 07:32] VITALS: BP 150/71
[2017-12-23 11:21] LABS: TROP-I INTERPRETATION NEGATIVE; TROPONIN-I 0.02 ng/mL (0.0-0.30)
[2017-12-23 11:48] VITALS: BP 143/72
[2017-12-23 15:49] VITALS: BP 159/68
[2017-12-23 19:54] VITALS: BP 158/71
[2017-12-24 00:04] VITALS: BP 182/79
[2017-12-24 03:51] VITALS: BP 139/76
[2017-12-24 08:15] VITALS: BP 150/60
[2017-12-24 10:21] LABS: HEMATOCRIT 33.3 % (36.0-46.0); HEMOGLOBIN 10.7 G/DL (11.9-15.5); MCHC 32.1 G/DL (30.0-36.0); MCV 84.1 FL (83-99); PLATELET COUNT 223 K/uL (156-360); RBC DIS.WIDTH-CV 14.3 % (11.8-14.6); RBC DIS.WIDTH-SD 43.8 % (39-53); RED BLOOD COUNT 3.96 M/uL (3.80-5.20); WHITE BLOOD COUNT 12.6 K/uL (4.1-10.2)
[2017-12-24 11:09] LABS: CHLORIDE 95 MEQ/L (99-109); CREATININE 2.4 MG/DL (0.6-1.3); GFR ESTIMATE (CALCULATED) 22 mL/min/; POTASSIUM 4.2 MEQ/L (3.7-5.4); SODIUM 132 MEQ/L (136-147); UREA NITROGEN (BUN) 62 mg/dL (9-23)
[2017-12-24 11:10] LABS: GLUCOSE 516 mg/dL (70-99)
[2017-12-24 11:18] VITALS: BP 189/78
[2017-12-24 16:00] VITALS: BP 178/77
[2017-12-24 20:14] VITALS: BP 164/71
[2017-12-25] VITALS (7 sets, daily range): BP systolic 130–190; BP diastolic 62–73
[2017-12-25 08:29] LABS: HEMATOCRIT 31.5 % (36.0-46.0); HEMOGLOBIN 10.2 G/DL (11.9-15.5); MCH 26.8 PG (29.0-34.0); MCHC 32.4 G/DL (30.0-36.0); MCV 82.9 FL (83-99); PLATELET COUNT 230 K/uL (156-360); RBC DIS.WIDTH-CV 14.6 % (11.8-14.6); RBC DIS.WIDTH-SD 43.9 % (39-53); WHITE BLOOD COUNT 17.6 K/uL (4.1-10.2)
[2017-12-25 09:05] LABS: CHLORIDE 97 MEQ/L (99-109); CREATININE 2.2 MG/DL (0.6-1.3); GFR ESTIMATE (CALCULATED) 24 mL/min/; POTASSIUM 4.2 MEQ/L (3.7-5.4); SODIUM 135 MEQ/L (136-147); UREA NITROGEN (BUN) 64 mg/dL (9-23)
[2017-12-25 09:18] LABS: GLUCOSE 179 mg/dL (70-99)
[2017-12-26] VITALS: BP 180/87
[2017-12-26 04:00] VITALS: BP 180/86
[2017-12-26 06:11] LABS: HEMATOCRIT 31.6 % (36.0-46.0); HEMOGLOBIN 10.4 G/DL (11.9-15.5); MCH 27.2 PG (29.0-34.0); MCHC 32.9 G/DL (30.0-36.0); MCV 82.5 FL (83-99); PLATELET COUNT 204 K/uL (156-360); RBC DIS.WIDTH-CV 14.6 % (11.8-14.6); RBC DIS.WIDTH-SD 43.5 % (39-53); RED BLOOD COUNT 3.83 M/uL (3.80-5.20); WHITE BLOOD COUNT 13.7 K/uL (4.1-10.2)
[2017-12-26 06:36] LABS: CHLORIDE 96 MEQ/L (99-109); CREATININE 2.2 MG/DL (0.6-1.3); GFR ESTIMATE (CALCULATED) 24 mL/min/; GLUCOSE 260 mg/dL (70-99); POTASSIUM 3.8 MEQ/L (3.7-5.4); SODIUM 135 MEQ/L (136-147); UREA NITROGEN (BUN) 72 mg/dL (9-23)
[2017-12-26 07:46] VITALS: BP 148/81
[2017-12-26 11:46] VITALS: BP 174/76
[2017-12-26] MEDS ORDERED: AMOX TR-K CLV1 EAC3 PO (12:11)
[2017-12-26] MEDS ORDERED: LASIX40 MG PO (12:52)
[2017-12-26] MEDS ORDERED: MEDROL DOSEPAK4 MG PO (12:52)
[2017-12-26] MEDS ORDERED: AZITHROMYCIN500 M1 PO (12:53)
== END 2017-12-26 15:05 | disposition home health service (06) | DRG 189 ==
LOC: EME 18:50 → EDOF 12-23 02:09 → 5SOUTH 12-23 02:09 → ENRESERV 12-23 02:12 → 5SOUTH 12-23 03:26
PROVIDERS: Emergency Medicine; Hospitalist; Physician Assistant Medical
PROC: 5A09357 Assistance with Respiratory Ventilation, Less than 24 Consecutive Hours, Continuous Positive Airway Pressure (ICD-10-PCS; principal; 2017-12-23)
DX: J96.21 Acute and chronic respiratory failure with hypoxia (principal); I13.0 Hypertensive heart and chronic kidney disease with heart failure and stage 1 through stage 4 chronic kidney disease, or unspecified chronic kidney disease; I50.33 Acute on chronic diastolic (congestive) heart failure; J44.1 Chronic obstructive pulmonary disease with (acute) exacerbation; E11.22 Type 2 diabetes mellitus with diabetic chronic kidney disease; N18.3 Chronic kidney disease, stage 3 (moderate); D64.9 Anemia, unspecified; E03.9 Hypothyroidism, unspecified; E11.65 Type 2 diabetes mellitus with hyperglycemia; E78.5 Hyperlipidemia, unspecified; F32.9 Major depressive disorder, single episode, unspecified; F41.9 Anxiety disorder, unspecified; G47.33 Obstructive sleep apnea (adult) (pediatric); I27.20 Pulmonary hypertension, unspecified; K21.9 Gastro-esophageal reflux disease without esophagitis; I25.10 Atherosclerotic heart disease of native coronary artery without angina pectoris; G89.29 Other chronic pain; M54.5 Low back pain; E66.01 Morbid (severe) obesity due to excess calories; Z99.81 Dependence on supplemental oxygen; Z68.43 Body mass index [BMI] 50.0-59.9, adult; Z85.3 Personal history of malignant neoplasm of breast; Z79.82 Long term (current) use of aspirin; Z79.4 Long term (current) use of insulin
CPT/HCPCS: 36600; 71046; 71250; 73130; 78582; 80048; 80076; 82803; 82948; 83605; 83735; 83880; 84439; 84443; 84484; 85027; 85379; 86850; 86900; 86901; 93005; 94640; 94640 76; 94660; 94799; 99281; 99285; A9540; A9567; J1644; J1650; J1815; J1940; J2930; J7512

== ENCOUNTER 2018-02-05 00:28 | Inpatient (IN) | payer OTHER ==
[~2018-02-05] VITALS: Ht 163.8 cm; Wt 133.3 kg
[~2018-02-05 00:28] MED LIST changes: +ALPRAZOLAM0.5 MG PO; +AZITHROMYCIN500 M1 PO; +HYDROCHLOROTH12.5 M3 PO; +LEVAQUIN500 MG PO; +MEDROL DOSEPAK4 MG PO; -PROAIR HFA8.5 GM IH; +PROAIR RESPICL90 MCG IH
[2018-02-05 01:10] LABS: HEMATOCRIT 34.7 % (36.0-46.0); HEMOGLOBIN 11.1 G/DL (11.9-15.5); MCH 28.3 PG (29.0-34.0); MCV 88.5 FL (83-99); PLATELET COUNT 205 K/uL (156-360); RBC DIS.WIDTH-CV 14.9 % (11.8-14.6); RBC DIS.WIDTH-SD 47.8 % (39-53); RED BLOOD COUNT 3.92 M/uL (3.80-5.20); WHITE BLOOD COUNT 9.4 K/uL (4.1-10.2)
[2018-02-05 01:20] LABS: ALBUMIN 2.7 g/dL (3.2-4.8); CHLORIDE 100 mEq/L (99-109); POTASSIUM 4.3 mEq/L (3.7-5.4); SODIUM 134 mEq/L (136-147)
[2018-02-05 01:22] LABS: GLUCOSE 179 mg/dL (70-99)
[2018-02-05 01:23] LABS: TOTAL PROTEIN 5.6 g/dL (6.4-8.3)
[2018-02-05 01:24] LABS: TOTAL BILIRUBIN 0.5 mg/dL (0.0-1.0)
[2018-02-05 01:26] LABS: ALKALINE PHOSPHATASE 314 IU/L (3-129); CREATININE 2.4 mg/dL (0.6-1.3); GFR ESTIMATE (CALCULATED) 22 mL/min/
[2018-02-05 01:27] LABS: UREA NITROGEN (BUN) 58 mg/dL (9-23)
[2018-02-05 01:28] LABS: AST (GOT) 373 IU/L (2-34)
[2018-02-05 01:29] LABS: ALT (GPT) 396 IU/L (3-49)
[2018-02-05 01:30] LABS: LIPASE 17 U/L (1.0-51.0)
[2018-02-05 01:33] LABS: TROP-I INTERPRETATION NEGATIVE
[2018-02-05 04:11] LABS: APPEARANCE CLEAR ((CLEAR)); BILIRUBIN NEGATIVE; BLOOD NEGATIVE; COLOR YELLOW ((YELLOW)); GLUCOSE (STRIP) 150; KETONES NEGATIVE; LEUKOCYTES NEGATIVE; NITRITE NEGATIVE; PROTEIN (STRIP) >=500; SPECIFIC GRAVITY 1.013 (1.000-1.030); UROBILINOGEN 0.2 MG/DL (0.2-1.0)
[2018-02-05 04:14] LABS: BACTERIA RARE /HPF; EPITHELIAL CELLS RARE /HPF; HYALINE CASTS 0-5 /LPF; MUCUS TRACE /LPF; RED BLOOD CELLS 0-5 /HPF (0-5); UCUL ADDED? NO; WHITE BLOOD CELLS 0-5 /HPF (0-5)
[2018-02-05] MEDS ORDERED: ALLOPURINOL100 MG PO (05:12)
[2018-02-05] MEDS ORDERED: ATORVASTATIN CA10 MG PO (05:13)
[2018-02-05 06:06] VITALS: BP 137/65
[2018-02-05 09:08] LABS: TROP-I INTERPRETATION INDETERMINATE; TROPONIN-I 0.37 ng/mL (0.0-0.30)
[2018-02-05 10:27] LABS: HEPATITIS B SURFACE ANTIGEN Nonreactive
[2018-02-05 10:28] LABS: HEPATITIS C ANTIBODY Nonreactive
[2018-02-05 10:29] LABS: ANTI-HEPATITIS A VIRUS (IGM) Nonreactive
[2018-02-05 10:30] LABS: ANTI-HEPATITIS B CORE (IGM) Nonreactive
[2018-02-05] MEDS ORDERED: PERCOCET 5/31 TABLET PO (11:25)
[2018-02-05] MEDS ORDERED: LASIX40 MG PO (11:37)
[2018-02-05] MEDS ORDERED: LASIX20 MG PO (11:38)
[2018-02-05 11:43] VITALS: BP 154/78
[2018-02-05] MEDS ORDERED: TOUJEO SOL300 UNIT/1 SC (11:51)
[2018-02-05] MEDS ORDERED: HUMALOG100 UNIT/1 SC (11:55)
[2018-02-05] MEDS ORDERED: SPIRIVA RESPIMAT4 GM IH (11:59)
[2018-02-05] MEDS ORDERED: DECARA50000 UNIT PO (12:00)
[2018-02-05] MEDS ORDERED: METOPROLOL TART50 MG PO (12:01)
[2018-02-05] MEDS ORDERED: GLUCO BURST37.5 GM PO (12:03)
[2018-02-05] MEDS ORDERED: TYLENOL REGULA325 MG PO (12:04)
[2018-02-05 13:48] LABS: TROP-I INTERPRETATION INDETERMINATE; TROPONIN-I 0.35 ng/mL (0.0-0.30)
[2018-02-05 16:56] VITALS: BP 185/81
[2018-02-05 19:30] VITALS: BP 125/65
[2018-02-05 20:08] VITALS: BP 139/59
[2018-02-05 23:41] VITALS: BP 130/59
[2018-02-06 03:49] VITALS: BP 117/64
[2018-02-06 06:22] LABS: HEMATOCRIT 31.2 % (36.0-46.0); HEMOGLOBIN 9.5 G/DL (11.9-15.5); MCH 27.2 PG (29.0-34.0); MCHC 30.4 G/DL (30.0-36.0); MCV 89.4 FL (83-99); PLATELET COUNT 191 K/uL (156-360); RBC DIS.WIDTH-SD 48.1 % (39-53); RED BLOOD COUNT 3.49 M/uL (3.80-5.20); WHITE BLOOD COUNT 6.6 K/uL (4.1-10.2)
[2018-02-06 06:45] LABS: ALBUMIN 2.1 G/DL (3.2-4.8); ALKALINE PHOSPHATASE 183 IU/L (3-129); ALT (GPT) 215 IU/L (3-49); AST (GOT) 97 IU/L (2-34); CHLORIDE 101 MEQ/L (99-109); CREATININE 2.7 MG/DL (0.6-1.3); DIRECT BILIRUBIN 0.2 mg/dL (0.0-0.3); GFR ESTIMATE (CALCULATED) 19 mL/min/; GLUCOSE 210 mg/dL (70-99); IRON 36 MCG/DL (35-150); POTASSIUM 4.7 MEQ/L (3.7-5.4); SODIUM 136 MEQ/L (136-147); TOTAL BILIRUBIN 0.4 MG/DL (0.0-1.0); TOTAL PROTEIN 4.3 G/DL (6.4-8.3); TRANSFERRIN (TIBC) 155.2 mg/dL (215-380); TRANSFERRIN SATUR. 23 % (20-55); UREA NITROGEN (BUN) 62 mg/dL (9-23)
[2018-02-06 07:45] VITALS: BP 121/62
[2018-02-06 11:15] VITALS: BP 132/63
[2018-02-06 15:25] VITALS: BP 113/58
[2018-02-06 18:55] VITALS: BP 122/74
[2018-02-06 23:21] VITALS: BP 135/62
[2018-02-07] VITALS (7 sets, daily range): BP systolic 126–166; BP diastolic 58–74
[2018-02-07 06:11] LABS: HEMATOCRIT 32.8 % (36.0-46.0); HEMOGLOBIN 10.2 G/DL (11.9-15.5); MCH 28.4 PG (29.0-34.0); MCHC 31.1 G/DL (30.0-36.0); MCV 91.4 FL (83-99); PLATELET COUNT 211 K/uL (156-360); RBC DIS.WIDTH-CV 15.4 % (11.8-14.6); RBC DIS.WIDTH-SD 50.4 % (39-53); RED BLOOD COUNT 3.59 M/uL (3.80-5.20); WHITE BLOOD COUNT 7.1 K/uL (4.1-10.2)
[2018-02-07 06:21] LABS: TROP-I INTERPRETATION NEGATIVE; TROPONIN-I 0.19 ng/mL (0.0-0.30)
[2018-02-07 06:31] LABS: ALBUMIN 2.3 G/DL (3.2-4.8); CHLORIDE 103 MEQ/L (99-109); GFR ESTIMATE (CALCULATED) 15 mL/min/; GLUCOSE 128 mg/dL (70-99); PHOSPHORUS 6.1 mg/dL (2.5-4.9); POTASSIUM 4.7 MEQ/L (3.7-5.4); SODIUM 139 MEQ/L (136-147); UREA NITROGEN (BUN) 69 mg/dL (9-23)
[2018-02-07 06:34] LABS: CREATININE 3.2 MG/DL (0.6-1.3)
[2018-02-07 11:09] LABS: TROP-I INTERPRETATION NEGATIVE; TROPONIN-I 0.18 ng/mL (0.0-0.30)
[2018-02-07 17:31] LABS: TROP-I INTERPRETATION NEGATIVE; TROPONIN-I 0.18 ng/mL (0.0-0.30)
[2018-02-08 03:15] VITALS: BP 127/61
[2018-02-08 05:44] LABS: BASOPHIL (%) 0.2 % (0-1); EOSINOPHIL (%) 7.3 % (0-5); EOSINOPHIL COUNT 0.4 K/uL (0-0.3); HEMATOCRIT 33.5 % (36.0-46.0); HEMOGLOBIN 10.4 G/DL (11.9-15.5); IMMATURE GRANULOCYTE (%) 0.2 % (0.0-0.7); LYMPHOCYTE (%) 14.2 % (15-42); LYMPHOCYTE COUNT 0.8 K/uL (1.0-2.8); MCH 28.3 PG (29.0-34.0); MONOCYTE (%) 8.3 % (3-12); MONOCYTE COUNT 0.5 K/uL (0-0.8); NEUTROPHIL (%) 69.8 % (45-76); NEUTROPHIL COUNT 4.1 K/uL (1.8-6.4); PLATELET COUNT 179 K/uL (156-360); RBC DIS.WIDTH-CV 15.6 % (11.8-14.6); RBC DIS.WIDTH-SD 50.3 % (39-53); RED BLOOD COUNT 3.68 M/uL (3.80-5.20); WHITE BLOOD COUNT 5.9 K/uL (4.1-10.2)
[2018-02-08 06:08] LABS: CHLORIDE 103 MEQ/L (99-109); CREATININE 2.9 MG/DL (0.6-1.3); GFR ESTIMATE (CALCULATED) 17 mL/min/; GLUCOSE 135 mg/dL (70-99); POTASSIUM 4.4 MEQ/L (3.7-5.4); SODIUM 138 MEQ/L (136-147); UREA NITROGEN (BUN) 69 mg/dL (9-23)
[2018-02-08 07:53] VITALS: BP 168/81
[2018-02-08 11:25] VITALS: BP 175/84
[2018-02-08 11:47] LABS: ALBUMIN 2.6 G/DL (3.2-4.8); ALKALINE PHOSPHATASE 177 IU/L (3-129); ALT (GPT) 152 IU/L (3-49); AST (GOT) 59 IU/L (2-34); DIRECT BILIRUBIN 0.2 mg/dL (0.0-0.3)
[2018-02-08 11:49] LABS: TOTAL BILIRUBIN 0.5 MG/DL (0.0-1.0); TOTAL PROTEIN 5.1 G/DL (6.4-8.3)
[2018-02-08 15:07] VITALS: BP 170/82
[2018-02-08 18:50] VITALS: BP 143/68
[2018-02-08 20:02] VITALS: BP 168/77
[2018-02-09 00:46] VITALS: BP 169/79
[2018-02-09 03:47] VITALS: BP 141/73
[2018-02-09 05:39] LABS: BASOPHIL (%) 0.3 % (0-1); EOSINOPHIL (%) 4.3 % (0-5); EOSINOPHIL COUNT 0.3 K/uL (0-0.3); HEMATOCRIT 33.6 % (36.0-46.0); HEMOGLOBIN 10.3 G/DL (11.9-15.5); IMMATURE GRANULOCYTE (%) 0.3 % (0.0-0.7); LYMPHOCYTE (%) 14.3 % (15-42); LYMPHOCYTE COUNT 0.9 K/uL (1.0-2.8); MCH 27.5 PG (29.0-34.0); MCHC 30.7 G/DL (30.0-36.0); MCV 89.8 FL (83-99); MONOCYTE (%) 8.9 % (3-12); MONOCYTE COUNT 0.5 K/uL (0-0.8); NEUTROPHIL (%) 71.9 % (45-76); NEUTROPHIL COUNT 4.4 K/uL (1.8-6.4); PLATELET COUNT 157 K/uL (156-360); RBC DIS.WIDTH-CV 15.2 % (11.8-14.6); RBC DIS.WIDTH-SD 49.3 % (39-53); RED BLOOD COUNT 3.74 M/uL (3.80-5.20); WHITE BLOOD COUNT 6.1 K/uL (4.1-10.2)
[2018-02-09 06:23] LABS: ALBUMIN 2.4 G/DL (3.2-4.8); ALKALINE PHOSPHATASE 185 IU/L (3-129); ALT (GPT) 134 IU/L (3-49); AST (GOT) 66 IU/L (2-34); CHLORIDE 104 MEQ/L (99-109); CREATININE 2.6 MG/DL (0.6-1.3); GFR ESTIMATE (CALCULATED) 20 mL/min/; GLUCOSE 149 mg/dL (70-99); POTASSIUM 4.2 MEQ/L (3.7-5.4); SODIUM 140 MEQ/L (136-147); TOTAL BILIRUBIN 0.6 MG/DL (0.0-1.0); UREA NITROGEN (BUN) 69 mg/dL (9-23)
[2018-02-09 07:15] VITALS: BP 174/80
[2018-02-09 15:20] VITALS: BP 178/87
[2018-02-09 18:14] LABS: ANTI-SMOOTH MUSCLE (Actin)+ 46 U (<20); MITOCHONDRIAL (M2) ANTIBODIES+ <=20.0 U (<=20.0)
[2018-02-09 20:27] VITALS: BP 158/79
[2018-02-10] VITALS (7 sets, daily range): BP systolic 141–188; BP diastolic 70–99
[2018-02-10 06:24] LABS: BASOPHIL (%) 0.3 % (0-1); EOSINOPHIL (%) 3.6 % (0-5); EOSINOPHIL COUNT 0.3 K/uL (0-0.3); HEMOGLOBIN 10.2 G/DL (11.9-15.5); IMMATURE GRANULOCYTE (%) 0.4 % (0.0-0.7); LYMPHOCYTE COUNT 0.9 K/uL (1.0-2.8); MCH 27.7 PG (29.0-34.0); MCHC 30.9 G/DL (30.0-36.0); MCV 89.7 FL (83-99); MONOCYTE COUNT 0.6 K/uL (0-0.8); NEUTROPHIL (%) 74.7 % (45-76); NEUTROPHIL COUNT 5.2 K/uL (1.8-6.4); PLATELET COUNT 166 K/uL (156-360); RBC DIS.WIDTH-SD 48.9 % (39-53); RED BLOOD COUNT 3.68 M/uL (3.80-5.20)
[2018-02-10 07:07] LABS: CHLORIDE 101 MEQ/L (99-109); CREATININE 2.2 MG/DL (0.6-1.3); GFR ESTIMATE (CALCULATED) 24 mL/min/; GLUCOSE 171 mg/dL (70-99); SODIUM 140 MEQ/L (136-147); UREA NITROGEN (BUN) 59 mg/dL (9-23)
[2018-02-10 07:08] LABS: ALBUMIN 2.4 G/DL (3.2-4.8); ALKALINE PHOSPHATASE 172 IU/L (3-129); ALT (GPT) 99 IU/L (3-49); CHLORIDE 100 MEQ/L (99-109); CREATININE 2.2 MG/DL (0.6-1.3); GFR ESTIMATE (CALCULATED) 24 mL/min/; GLUCOSE 171 mg/dL (70-99); POTASSIUM 3.9 MEQ/L (3.7-5.4); SODIUM 140 MEQ/L (136-147); TOTAL BILIRUBIN 0.7 MG/DL (0.0-1.0); TOTAL PROTEIN 4.9 G/DL (6.4-8.3); UREA NITROGEN (BUN) 59 mg/dL (9-23)
[2018-02-10 07:11] LABS: AST (GOT) 32 IU/L (2-34)
[2018-02-11 06:42] LABS: BASOPHIL (%) 0.2 % (0-1); EOSINOPHIL (%) 5.4 % (0-5); EOSINOPHIL COUNT 0.4 K/uL (0-0.3); HEMATOCRIT 32.9 % (36.0-46.0); HEMOGLOBIN 10.4 G/DL (11.9-15.5); IMMATURE GRANULOCYTE (%) 0.3 % (0.0-0.7); LYMPHOCYTE (%) 15.2 % (15-42); MCH 28.3 PG (29.0-34.0); MCHC 31.6 G/DL (30.0-36.0); MCV 89.6 FL (83-99); MONOCYTE (%) 10.4 % (3-12); MONOCYTE COUNT 0.7 K/uL (0-0.8); NEUTROPHIL (%) 68.5 % (45-76); NEUTROPHIL COUNT 4.4 K/uL (1.8-6.4); PLATELET COUNT 161 K/uL (156-360); RBC DIS.WIDTH-CV 14.8 % (11.8-14.6); RBC DIS.WIDTH-SD 48.3 % (39-53); RED BLOOD COUNT 3.67 M/uL (3.80-5.20); WHITE BLOOD COUNT 6.4 K/uL (4.1-10.2)
[2018-02-11 06:58] LABS: CHLORIDE 101 MEQ/L (99-109); CREATININE 2.1 MG/DL (0.6-1.3); GFR ESTIMATE (CALCULATED) 25 mL/min/; GLUCOSE 135 mg/dL (70-99); POTASSIUM 3.7 MEQ/L (3.7-5.4); SODIUM 139 MEQ/L (136-147); UREA NITROGEN (BUN) 55 mg/dL (9-23)
[2018-02-11 07:25] VITALS: BP 153/66
[2018-02-11 11:00] VITALS: BP 149/69
[2018-02-11 15:00] VITALS: BP 151/61
[2018-02-11 20:04] VITALS: BP 153/70
[2018-02-11 23:37] VITALS: BP 143/65
[2018-02-12 03:26] VITALS: BP 147/70
[2018-02-12 06:24] LABS: BASOPHIL (%) 0.2 % (0-1); EOSINOPHIL (%) 4.9 % (0-5); EOSINOPHIL COUNT 0.3 K/uL (0-0.3); HEMATOCRIT 31.8 % (36.0-46.0); HEMOGLOBIN 10.1 G/DL (11.9-15.5); IMMATURE GRANULOCYTE (%) 0.3 % (0.0-0.7); LYMPHOCYTE (%) 14.1 % (15-42); LYMPHOCYTE COUNT 0.8 K/uL (1.0-2.8); MCH 28.4 PG (29.0-34.0); MCHC 31.8 G/DL (30.0-36.0); MCV 89.3 FL (83-99); MONOCYTE (%) 10.4 % (3-12); MONOCYTE COUNT 0.6 K/uL (0-0.8); NEUTROPHIL (%) 70.1 % (45-76); NEUTROPHIL COUNT 4.2 K/uL (1.8-6.4); PLATELET COUNT 155 K/uL (156-360); RBC DIS.WIDTH-CV 14.6 % (11.8-14.6); RBC DIS.WIDTH-SD 47.6 % (39-53); RED BLOOD COUNT 3.56 M/uL (3.80-5.20); WHITE BLOOD COUNT 5.9 K/uL (4.1-10.2)
[2018-02-12 06:52] LABS: CHLORIDE 101 MEQ/L (99-109); GFR ESTIMATE (CALCULATED) 27 mL/min/; GLUCOSE 167 mg/dL (70-99); POTASSIUM 3.9 MEQ/L (3.7-5.4); SODIUM 141 MEQ/L (136-147); UREA NITROGEN (BUN) 50 mg/dL (9-23)
[2018-02-12 07:15] VITALS: BP 181/80
[2018-02-12 14:45] VITALS: BP 188/91
[2018-02-12 16:05] VITALS: BP 169/85
[2018-02-12 19:22] VITALS: BP 160/83
[2018-02-13] VITALS (8 sets, daily range): BP systolic 135–190; BP diastolic 62–92
[2018-02-13 06:09] LABS: BASOPHIL (%) 0.3 % (0-1); EOSINOPHIL (%) 4.2 % (0-5); EOSINOPHIL COUNT 0.3 K/uL (0-0.3); HEMATOCRIT 32.5 % (36.0-46.0); HEMOGLOBIN 10.1 G/DL (11.9-15.5); IMMATURE GRANULOCYTE (%) 0.3 % (0.0-0.7); LYMPHOCYTE (%) 17.3 % (15-42); LYMPHOCYTE COUNT 1.1 K/uL (1.0-2.8); MCH 27.9 PG (29.0-34.0); MCHC 31.1 G/DL (30.0-36.0); MCV 89.8 FL (83-99); MONOCYTE COUNT 0.8 K/uL (0-0.8); NEUTROPHIL (%) 64.9 % (45-76); NEUTROPHIL COUNT 4.2 K/uL (1.8-6.4); PLATELET COUNT 166 K/uL (156-360); RBC DIS.WIDTH-CV 14.6 % (11.8-14.6); RBC DIS.WIDTH-SD 47.7 % (39-53); RED BLOOD COUNT 3.62 M/uL (3.80-5.20); WHITE BLOOD COUNT 6.4 K/uL (4.1-10.2)
[2018-02-13 06:40] LABS: ALBUMIN 2.2 G/DL (3.2-4.8); ALT (GPT) 39 IU/L (3-49); CHLORIDE 101 MEQ/L (99-109); GFR ESTIMATE (CALCULATED) 27 mL/min/; POTASSIUM 3.7 MEQ/L (3.7-5.4); SODIUM 142 MEQ/L (136-147); TOTAL BILIRUBIN 0.6 MG/DL (0.0-1.0); TOTAL PROTEIN 4.8 G/DL (6.4-8.3); UREA NITROGEN (BUN) 43 mg/dL (9-23)
[2018-02-13 06:41] LABS: ALKALINE PHOSPHATASE 122 IU/L (3-129); AST (GOT) 17 IU/L (2-34); CHLORIDE 103 MEQ/L (99-109); GFR ESTIMATE (CALCULATED) 27 mL/min/; GLUCOSE 82 mg/dL (70-99); POTASSIUM 3.7 MEQ/L (3.7-5.4); SODIUM 142 MEQ/L (136-147); UREA NITROGEN (BUN) 44 mg/dL (9-23)
[2018-02-13 06:42] LABS: GLUCOSE 84 mg/dL (70-99)
[2018-02-14 04:55] VITALS: BP 141/86
[2018-02-14 06:14] LABS: CHLORIDE 100 MEQ/L (99-109); GFR ESTIMATE (CALCULATED) 27 mL/min/; IRON 22 MCG/DL (35-150); POTASSIUM 3.6 MEQ/L (3.7-5.4); SODIUM 140 MEQ/L (136-147); TRANSFERRIN (TIBC) 171.1 mg/dL (215-380); TRANSFERRIN SATUR. 13 % (20-55); UREA NITROGEN (BUN) 43 mg/dL (9-23)
[2018-02-14 06:16] LABS: GLUCOSE 104 mg/dL (70-99)
[2018-02-14 07:15] VITALS: BP 181/86
[2018-02-14 07:22] VITALS: BP 132/71
[2018-02-14 11:30] VITALS: BP 145/72
[2018-02-14 11:46] VITALS: BP 145/70
[2018-02-14 16:25] VITALS: BP 140/79
[2018-02-15] VITALS (7 sets, daily range): BP systolic 120–190; BP diastolic 65–88
[2018-02-15 05:45] LABS: HEMATOCRIT 31.3 % (36.0-46.0); HEMOGLOBIN 9.7 G/DL (11.9-15.5); MCH 27.9 PG (29.0-34.0); MCV 89.9 FL (83-99); PLATELET COUNT 168 K/uL (156-360); RBC DIS.WIDTH-CV 14.6 % (11.8-14.6); RBC DIS.WIDTH-SD 47.2 % (39-53); RED BLOOD COUNT 3.48 M/uL (3.80-5.20); WHITE BLOOD COUNT 5.6 K/uL (4.1-10.2)
[2018-02-15 06:23] LABS: CHLORIDE 103 MEQ/L (99-109); CREATININE 2.1 MG/DL (0.6-1.3); GFR ESTIMATE (CALCULATED) 25 mL/min/; GLUCOSE 97 mg/dL (70-99); POTASSIUM 3.9 MEQ/L (3.7-5.4); SODIUM 142 MEQ/L (136-147); UREA NITROGEN (BUN) 41 mg/dL (9-23)
[2018-02-16] VITALS (7 sets, daily range): BP systolic 144–168; BP diastolic 71–89
[2018-02-16 05:42] LABS: BASOPHIL (%) 0.3 % (0-1); EOSINOPHIL (%) 3.7 % (0-5); EOSINOPHIL COUNT 0.3 K/uL (0-0.3); HEMATOCRIT 35.3 % (36.0-46.0); HEMOGLOBIN 10.8 G/DL (11.9-15.5); IMMATURE GRANULOCYTE (%) 0.4 % (0.0-0.7); LYMPHOCYTE (%) 12.9 % (15-42); MCH 27.6 PG (29.0-34.0); MCHC 30.6 G/DL (30.0-36.0); MCV 90.1 FL (83-99); MONOCYTE COUNT 0.8 K/uL (0-0.8); NEUTROPHIL (%) 71.7 % (45-76); NEUTROPHIL COUNT 5.4 K/uL (1.8-6.4); PLATELET COUNT 193 K/uL (156-360); RBC DIS.WIDTH-CV 14.8 % (11.8-14.6); RBC DIS.WIDTH-SD 48.7 % (39-53); RED BLOOD COUNT 3.92 M/uL (3.80-5.20); WHITE BLOOD COUNT 7.5 K/uL (4.1-10.2)
[2018-02-16 06:18] LABS: CHLORIDE 102 MEQ/L (99-109); CREATININE 2.4 MG/DL (0.6-1.3); GFR ESTIMATE (CALCULATED) 22 mL/min/; POTASSIUM 4.3 MEQ/L (3.7-5.4); SODIUM 139 MEQ/L (136-147); UREA NITROGEN (BUN) 41 mg/dL (9-23)
[2018-02-16 06:34] LABS: GLUCOSE 150 mg/dL (70-99)
[2018-02-17 03:12] VITALS: BP 160/92
[2018-02-17 05:12] LABS: BASOPHIL (%) 0.5 % (0-1); EOSINOPHIL (%) 4.1 % (0-5); EOSINOPHIL COUNT 0.3 K/uL (0-0.3); HEMATOCRIT 32.6 % (36.0-46.0); HEMOGLOBIN 10.2 G/DL (11.9-15.5); IMMATURE GRANULOCYTE (%) 0.2 % (0.0-0.7); LYMPHOCYTE (%) 16.2 % (15-42); MCH 28.1 PG (29.0-34.0); MCHC 31.3 G/DL (30.0-36.0); MCV 89.8 FL (83-99); MONOCYTE (%) 11.7 % (3-12); MONOCYTE COUNT 0.8 K/uL (0-0.8); NEUTROPHIL (%) 67.3 % (45-76); NEUTROPHIL COUNT 4.3 K/uL (1.8-6.4); PLATELET COUNT 166 K/uL (156-360); RBC DIS.WIDTH-CV 14.6 % (11.8-14.6); RBC DIS.WIDTH-SD 47.8 % (39-53); RED BLOOD COUNT 3.63 M/uL (3.80-5.20); WHITE BLOOD COUNT 6.4 K/uL (4.1-10.2)
[2018-02-17 05:45] LABS: ALBUMIN 2.6 G/DL (3.2-4.8); ALKALINE PHOSPHATASE 120 IU/L (3-129); ALT (GPT) 17 IU/L (3-49); AST (GOT) 16 IU/L (2-34); CHLORIDE 104 MEQ/L (99-109); CREATININE 2.3 MG/DL (0.6-1.3); GFR ESTIMATE (CALCULATED) 23 mL/min/; GLUCOSE 136 mg/dL (70-99); POTASSIUM 3.7 MEQ/L (3.7-5.4); SODIUM 141 MEQ/L (136-147); TOTAL BILIRUBIN 0.6 MG/DL (0.0-1.0); UREA NITROGEN (BUN) 42 mg/dL (9-23)
[2018-02-17 05:55] LABS: TOTAL PROTEIN 5.7 G/DL (6.4-8.3)
[2018-02-17 07:41] VITALS: BP 133/87
[2018-02-17 10:53] LABS: COMMENTS - BLOOD GASES A+C+; DEVICE NC; O2 FLOW 3 L/MIN; SITE LR; TOTAL RESP RATE 13 resp/min
[2018-02-17 10:54] LABS: BASE EXCESS 5.9 mEq/L (-3 to +3); BICARBONATE 30.6 mEq/L (22-26); CARBOXY HGB 1.6 % (0-5); METHEMOGLOBIN 0.8 % (0-1.5); PCO2 44 mm Hg (35-45); PO2 89 mm Hg (80-100); pH 7.45 (7.35-7.45)
[2018-02-17 12:27] VITALS: BP 136/74
[2018-02-17 16:32] VITALS: BP 159/80
[2018-02-17 20:15] VITALS: BP 187/82
[2018-02-18 00:57] VITALS: BP 145/67
[2018-02-18 03:58] VITALS: BP 159/81
[2018-02-18 05:50] LABS: BASOPHIL (%) 0.2 % (0-1); EOSINOPHIL (%) 0 % (0-5); HEMATOCRIT 33.7 % (36.0-46.0); HEMOGLOBIN 10.2 G/DL (11.9-15.5); IMMATURE GRANULOCYTE (%) 0.6 % (0.0-0.7); LYMPHOCYTE (%) 11.6 % (15-42); LYMPHOCYTE COUNT 0.6 K/uL (1.0-2.8); MCH 26.8 PG (29.0-34.0); MCHC 30.3 G/DL (30.0-36.0); MCV 88.7 FL (83-99); MONOCYTE (%) 0.9 % (3-12); MONOCYTE COUNT 0.1 K/uL (0-0.8); NEUTROPHIL (%) 86.7 % (45-76); NEUTROPHIL COUNT 4.7 K/uL (1.8-6.4); PLATELET COUNT 185 K/uL (156-360); RBC DIS.WIDTH-CV 14.4 % (11.8-14.6); RBC DIS.WIDTH-SD 46.7 % (39-53); WHITE BLOOD COUNT 5.4 K/uL (4.1-10.2)
[2018-02-18 06:19] LABS: CHLORIDE 102 MEQ/L (99-109); CREATININE 2.3 MG/DL (0.6-1.3); GFR ESTIMATE (CALCULATED) 23 mL/min/; GLUCOSE 179 mg/dL (70-99); POTASSIUM 4.2 MEQ/L (3.7-5.4); SODIUM 141 MEQ/L (136-147); UREA NITROGEN (BUN) 43 mg/dL (9-23)
[2018-02-18 08:18] VITALS: BP 174/86
[2018-02-18] MEDS ORDERED: CLONIDINE HCL0.1 MG PO (11:51)
[2018-02-18] MEDS ORDERED: PRAVASTATIN SOD40 MG PO (11:51)
[2018-02-18] MEDS ORDERED: NITROSTAT0.4 MG SL (11:51)
[2018-02-18] MEDS ORDERED: BYSTOLIC10 MG PO (11:52)
[2018-02-18] MEDS ORDERED: NIFEDIPINE ER30 MG PO (11:52)
[2018-02-18] MEDS ORDERED: DULOXETINE HCL30 MG PO (11:52)
[2018-02-18] MEDS ORDERED: SPIRONOLACTONE25 MG PO (11:52)
[2018-02-18] MEDS ORDERED: PREDNISONE10 MG PO (11:54)
[2018-02-18] MEDS ORDERED: LEVEMIR100 UNIT/2 SC (11:54)
[2018-02-18] MEDS ORDERED: NOVOLOG 10100 UNITS/ SC (11:54)
[2018-02-18] MEDS ORDERED: CAPSAICIN57 GM TP (11:55)
[2018-02-18 11:59] VITALS: BP 159/72
== END 2018-02-18 14:11 | DRG 286 ==
LOC: EME → EDBD 00:28 → EME 00:28 → 5EAST 04:12 → EDOF 04:12 → ENRESERV 04:14 → 5EAST 05:41 → ENRESERV 02-15 20:18 → 4EAST 02-15 21:20 → ENRESERV 02-17 13:10 → 5EAST 02-17 14:56
PROVIDERS: Emergency Medicine; Family Medicine; Hospitalist; Internal Medicine; Internal Medicine Gastroenterology; Internal Medicine Nephrology; Student in an Organized Health Care Education/Training Program
DX: I13.0 Hypertensive heart and chronic kidney disease with heart failure and stage 1 through stage 4 chronic kidney disease, or unspecified chronic kidney disease (principal); I50.43 Acute on chronic combined systolic (congestive) and diastolic (congestive) heart failure; J44.1 Chronic obstructive pulmonary disease with (acute) exacerbation; J96.21 Acute and chronic respiratory failure with hypoxia; Z99.81 Dependence on supplemental oxygen; N17.9 Acute kidney failure, unspecified; T50.8X5A Adverse effect of diagnostic agents, initial encounter; N14.1 Nephropathy induced by other drugs, medicaments and biological substances; I27.81 Cor pulmonale (chronic); I27.29 Other secondary pulmonary hypertension; R74.8 Abnormal levels of other serum enzymes; E11.22 Type 2 diabetes mellitus with diabetic chronic kidney disease; N18.4 Chronic kidney disease, stage 4 (severe); D63.1 Anemia in chronic kidney disease; I42.9 Cardiomyopathy, unspecified; I25.10 Atherosclerotic heart disease of native coronary artery without angina pectoris; E66.2 Morbid (severe) obesity with alveolar hypoventilation; Z68.43 Body mass index [BMI] 50.0-59.9, adult; K76.1 Chronic passive congestion of liver; E11.42 Type 2 diabetes mellitus with diabetic polyneuropathy; E11.43 Type 2 diabetes mellitus with diabetic autonomic (poly)neuropathy; K31.84 Gastroparesis; E11.51 Type 2 diabetes mellitus with diabetic peripheral angiopathy without gangrene; I08.1 Rheumatic disorders of both mitral and tricuspid valves; E03.9 Hypothyroidism, unspecified; K21.9 Gastro-esophageal reflux disease without esophagitis; G89.29 Other chronic pain; M54.40 Lumbago with sciatica, unspecified side; I70.8 Atherosclerosis of other arteries; E78.5 Hyperlipidemia, unspecified; F32.9 Major depressive disorder, single episode, unspecified; F41.0 Panic disorder [episodic paroxysmal anxiety]; Z79.4 Long term (current) use of insulin; Z79.899 Other long term (current) drug therapy; Z85.3 Personal history of malignant neoplasm of breast; Z90.11 Acquired absence of right breast and nipple; Z90.710 Acquired absence of both cervix and uterus
CPT/HCPCS: 36600; 71045; 72131; 74176; 74181; 76705; 80048; 80053; 80069; 80074; 80076; 81003; 82103 90; 82248; 82390; 82803; 82948; 83516 90; 83540; 83605; 83690; 83880; 84466; 84484; 85025; 85027; 86038; 86256 90; 93005; 93306; 93971; 94640; 94640 76; 94660; 94760; 94799; 99202; 99281; 99285; C1760; C1769; C1887; C1894; G0480; J0360; J1200; J1644; J1650; J1756; J1815; J1940; J2250; J2405; J2765; J2920; J3010; J7030; J7040; J7050; J7512

== ENCOUNTER 2018-02-23 01:56 | Emergency (ER) | payer OTHER ==
[~2018-02-23] VITALS: Ht 163.8 cm; Wt 139.9 kg
[~2018-02-23 01:56] MED LIST changes: +ALLOPURINOL100 MG PO; +ATORVASTATIN CA10 MG PO; +CAPSAICIN57 GM TP; +CLONIDINE HCL0.1 MG PO; +DECARA50000 UNIT PO; +DULOXETINE HCL30 MG PO; +GLUCO BURST37.5 GM PO; +LASIX20 MG PO; +LEVEMIR100 UNIT/2 SC; +METOPROLOL TART50 MG PO; +NIFEDIPINE ER30 MG PO; +NITROSTAT0.4 MG SL; +NOVOLOG 10100 UNITS/ SC; +PRAVASTATIN SOD40 MG PO; +SPIRONOLACTONE25 MG PO; +TYLENOL REGULA325 MG PO
[2018-02-23 03:14] LABS: BASOPHIL (%) 0.1 % (0-1); EOSINOPHIL (%) 0.8 % (0-5); EOSINOPHIL COUNT 0.1 K/uL (0-0.3); HEMATOCRIT 34.3 % (36.0-46.0); HEMOGLOBIN 11.2 G/DL (11.9-15.5); LYMPHOCYTE (%) 13.3 % (15-42); LYMPHOCYTE COUNT 1.1 K/uL (1.0-2.8); MCH 28.6 PG (29.0-34.0); MCHC 32.7 G/DL (30.0-36.0); MCV 87.7 FL (83-99); MONOCYTE (%) 7.7 % (3-12); MONOCYTE COUNT 0.6 K/uL (0-0.8); NEUTROPHIL (%) 77.1 % (45-76); NEUTROPHIL COUNT 6.4 K/uL (1.8-6.4); PLATELET COUNT 217 K/uL (156-360); RBC DIS.WIDTH-CV 15.1 % (11.8-14.6); RED BLOOD COUNT 3.91 M/uL (3.80-5.20); WHITE BLOOD COUNT 8.3 K/uL (4.1-10.2)
[2018-02-23 03:23] LABS: ALBUMIN 2.7 g/dL (3.2-4.8); CHLORIDE 99 mEq/L (99-109); SODIUM 135 mEq/L (136-147)
[2018-02-23 03:25] LABS: GLUCOSE 270 mg/dL (70-99); TOTAL PROTEIN 5.7 g/dL (6.4-8.3)
[2018-02-23 03:27] LABS: TOTAL BILIRUBIN 0.7 mg/dL (0.0-1.0)
[2018-02-23 03:29] LABS: ALKALINE PHOSPHATASE 122 IU/L (3-129); CREATININE 2.1 mg/dL (0.6-1.3); GFR ESTIMATE (CALCULATED) 25 mL/min/
[2018-02-23 03:30] LABS: UREA NITROGEN (BUN) 52 mg/dL (9-23)
[2018-02-23 03:31] LABS: AST (GOT) 23 IU/L (2-34); DIRECT BILIRUBIN 0.5 mg/dL (0.0-0.3)
[2018-02-23 03:32] LABS: ALT (GPT) 27 IU/L (3-49); LIPASE 9 U/L (1.0-51.0)
[2018-02-23 03:35] LABS: TROP-I INTERPRETATION NEGATIVE; TROPONIN-I 0.03 ng/mL (0.0-0.30)
[2018-02-23 07:02] LABS: TROP-I INTERPRETATION NEGATIVE; TROPONIN-I 0.03 ng/mL (0.0-0.30)
[2018-02-23] MEDS ORDERED: MAALOX MAXIMUM355 ML PO (07:20)
[2018-02-23] MEDS ORDERED: BACTRIM,SEPT1 TABLET PO (08:21)
[2018-02-23 08:35] VITALS: BP 188/94
[2018-02-23 08:42] LABS: APPEARANCE CLEAR ((CLEAR)); BILIRUBIN NEGATIVE; BLOOD NEGATIVE; COLOR YELLOW ((YELLOW)); GLUCOSE (STRIP) 50; KETONES NEGATIVE; LEUKOCYTES NEGATIVE; NITRITE NEGATIVE; PROTEIN (STRIP) >=500; SPECIFIC GRAVITY 1.011 (1.000-1.030); UROBILINOGEN 0.2 MG/DL (0.2-1.0)
[2018-02-23 08:47] LABS: BACTERIA NONE SEEN /HPF; EPITHELIAL CELLS RARE /HPF; HYALINE CASTS 0-5 /LPF; MUCUS NONE SEEN /LPF; RED BLOOD CELLS 0-5 /HPF (0-5); UCUL ADDED? YES
== END 2018-02-23 08:40 ==
LOC: EME → EDBD 01:56 → EME 08:40
PROVIDERS: Emergency Medicine
DX: R10.13 Epigastric pain (principal); L03.311 Cellulitis of abdominal wall; I13.0 Hypertensive heart and chronic kidney disease with heart failure and stage 1 through stage 4 chronic kidney disease, or unspecified chronic kidney disease; E11.22 Type 2 diabetes mellitus with diabetic chronic kidney disease; N18.3 Chronic kidney disease, stage 3 (moderate); I50.9 Heart failure, unspecified; J44.9 Chronic obstructive pulmonary disease, unspecified; F32.9 Major depressive disorder, single episode, unspecified; E78.5 Hyperlipidemia, unspecified; F41.9 Anxiety disorder, unspecified; K21.9 Gastro-esophageal reflux disease without esophagitis; D64.9 Anemia, unspecified; Z87.19 Personal history of other diseases of the digestive system; Z90.49 Acquired absence of other specified parts of digestive tract; Z90.11 Acquired absence of right breast and nipple; Z79.82 Long term (current) use of aspirin
CPT/HCPCS: 74176; 80048; 80076; 81003; 83690; 84484; 85025; 87086; 99281; 99284; J7030

== ENCOUNTER 2018-02-24 19:40 | Emergency (ER) | payer OTHER ==
[~2018-02-24] VITALS: Ht 162.6 cm; Wt 134.2 kg
[~2018-02-24 19:40] MED LIST changes: +BACTRIM,SEPT1 TABLET PO; +MAALOX MAXIMUM355 ML PO
[2018-02-24 21:49] LABS: BASOPHIL (%) 0.1 % (0-1); EOSINOPHIL (%) 0.1 % (0-5); HEMATOCRIT 36.4 % (36.0-46.0); HEMOGLOBIN 11.8 G/DL (11.9-15.5); IMMATURE GRANULOCYTE (%) 0.6 % (0.0-0.7); LYMPHOCYTE COUNT 0.7 K/uL (1.0-2.8); MCH 28.5 PG (29.0-34.0); MCHC 32.4 G/DL (30.0-36.0); MCV 87.9 FL (83-99); MONOCYTE (%) 3.8 % (3-12); MONOCYTE COUNT 0.3 K/uL (0-0.8); NEUTROPHIL (%) 87.4 % (45-76); NEUTROPHIL COUNT 7.9 K/uL (1.8-6.4); PLATELET COUNT 200 K/uL (156-360); RBC DIS.WIDTH-CV 15.4 % (11.8-14.6); RBC DIS.WIDTH-SD 48.9 % (39-53); RED BLOOD COUNT 4.14 M/uL (3.80-5.20)
[2018-02-24 22:19] LABS: ALBUMIN 2.7 g/dL (3.2-4.8); CHLORIDE 99 mEq/L (99-109); SODIUM 135 mEq/L (136-147)
[2018-02-24 22:20] LABS: TROP-I INTERPRETATION NEGATIVE; TROPONIN-I 0.02 ng/mL (0.0-0.30)
[2018-02-24 22:21] LABS: GLUCOSE 219 mg/dL (70-99); TOTAL PROTEIN 5.3 g/dL (6.4-8.3)
[2018-02-24 22:23] LABS: TOTAL BILIRUBIN 0.8 mg/dL (0.0-1.0)
[2018-02-24 22:24] LABS: ALKALINE PHOSPHATASE 123 IU/L (3-129)
[2018-02-24 22:25] LABS: CREATININE 2.1 mg/dL (0.6-1.3); GFR ESTIMATE (CALCULATED) 25 mL/min/
[2018-02-24 22:26] LABS: AST (GOT) 13 IU/L (2-34); DIRECT BILIRUBIN 0.5 mg/dL (0.0-0.3); UREA NITROGEN (BUN) 49 mg/dL (9-23)
[2018-02-24 22:28] LABS: INTER. NORMALIZED RATIO 1.2
[2018-02-24 22:30] LABS: PTT 26.3 SEC (25-37)
[2018-02-24 22:41] LABS: ALT (GPT) 22 IU/L (3-49)
[2018-02-24 22:42] LABS: LIPASE 5 U/L (1.0-51.0)
[2018-02-24 23:02] LABS: APPEARANCE CLEAR ((CLEAR)); BILIRUBIN NEGATIVE; BLOOD NEGATIVE; COLOR YELLOW ((YELLOW)); GLUCOSE (STRIP) 50; KETONES NEGATIVE; LEUKOCYTES NEGATIVE; NITRITE NEGATIVE; PROTEIN (STRIP) 100; SPECIFIC GRAVITY 1.009 (1.000-1.030); UROBILINOGEN 0.2 MG/DL (0.2-1.0)
[2018-02-24 23:10] LABS: BACTERIA NONE SEEN /HPF; EPITHELIAL CELLS NONE SEEN /HPF; HYALINE CASTS 0-5 /LPF; MUCUS TRACE /LPF; RED BLOOD CELLS NONE SEEN /HPF (0-5); UCUL ADDED? NO; WHITE BLOOD CELLS 0-5 /HPF (0-5)
[2018-02-25] MEDS ORDERED: PERCOCET 5/31 TABLET PO (00:04)
[2018-02-25 01:28] VITALS: BP 195/95
== END 2018-02-25 01:31 ==
LOC: EME → EDBD 19:40 → EME 19:40
PROVIDERS: Emergency Medicine
DX: R10.9 Unspecified abdominal pain (principal); E11.22 Type 2 diabetes mellitus with diabetic chronic kidney disease; Z79.84 Long term (current) use of oral hypoglycemic drugs; I12.9 Hypertensive chronic kidney disease with stage 1 through stage 4 chronic kidney disease, or unspecified chronic kidney disease; N18.3 Chronic kidney disease, stage 3 (moderate); E78.5 Hyperlipidemia, unspecified; J45.909 Unspecified asthma, uncomplicated; G43.909 Migraine, unspecified, not intractable, without status migrainosus; K21.9 Gastro-esophageal reflux disease without esophagitis; F32.9 Major depressive disorder, single episode, unspecified; F41.9 Anxiety disorder, unspecified; Z90.49 Acquired absence of other specified parts of digestive tract; Z85.9 Personal history of malignant neoplasm, unspecified; Z90.11 Acquired absence of right breast and nipple; Z79.82 Long term (current) use of aspirin; Z79.51 Long term (current) use of inhaled steroids; Z88.8 Allergy status to other drugs, medicaments and biological substances; Z88.1 Allergy status to other antibiotic agents; Z91.09 Other allergy status, other than to drugs and biological substances
CPT/HCPCS: 71046; 80048; 80076; 81003; 83605; 83690; 83880; 84484; 85025; 85610; 85730; 99281; 99285

== ENCOUNTER 2018-04-10 13:00 | Emergency (ER) | payer OTHER ==
[~2018-04-10] VITALS: Ht 162.6 cm; Wt 135.4 kg
[2018-04-10 16:02] VITALS: BP 152/82
[2018-04-14] MEDS ORDERED: TOUJEO MAX300 UNIT/1 SC (09:11)
[2018-04-14] MEDS ORDERED: VICTOZA 2-0.6 MG/0.1 SC (09:12)
== END 2018-04-10 16:04 ==
LOC: EME 13:00
DX: S83.92XA Sprain of unspecified site of left knee, initial encounter (principal); S93.402A Sprain of unspecified ligament of left ankle, initial encounter; W10.9XXA Fall (on) (from) unspecified stairs and steps, initial encounter; I12.9 Hypertensive chronic kidney disease with stage 1 through stage 4 chronic kidney disease, or unspecified chronic kidney disease; E11.22 Type 2 diabetes mellitus with diabetic chronic kidney disease; N18.3 Chronic kidney disease, stage 3 (moderate); G89.29 Other chronic pain; E78.5 Hyperlipidemia, unspecified; F32.9 Major depressive disorder, single episode, unspecified; F41.9 Anxiety disorder, unspecified; J45.909 Unspecified asthma, uncomplicated; K21.9 Gastro-esophageal reflux disease without esophagitis; Z90.11 Acquired absence of right breast and nipple; Z79.82 Long term (current) use of aspirin; Z79.4 Long term (current) use of insulin
CPT/HCPCS: 73564; 73590; 73610; 99281; 99283

== ENCOUNTER → 2018-04-14 | Outpatient (CLI) | payer OTHER ==
[~2018-04-14] VITALS: Ht 162.6 cm; Wt 133.0 kg
[~2018-04-14] MED LIST changes: +TOUJEO MAX300 UNIT/1 SC; +VICTOZA 2-0.6 MG/0.1 SC
== END ==
LOC: AMB 07:53
PROVIDERS: Internal Medicine Gastroenterology
PROC: 0DB68ZX Excision of Stomach, Via Natural or Artificial Opening Endoscopic, Diagnostic (ICD-10-PCS; principal; 2018-04-14)
DX: K29.70 Gastritis, unspecified, without bleeding (principal); I10 Essential (primary) hypertension; E11.9 Type 2 diabetes mellitus without complications; R60.0 Localized edema
CPT/HCPCS: 82948; 88305; 88342 TC